=== PATIENT | female | born 1950 | race Caucasian/White ===

== ENCOUNTER → 2016-12-27 | Outpatient (CLI) | payer OTHER ==
[2014-06-15 11:05] VITALS: BP 124/66
[~2016-12-27] MED LIST: AZIT1PAC7 PO; CARV12.5 PO; DILT120C4 PO; GUAI-171 PO; LISI-338 PO; PARO20TA55 PO; SIMV80TA3 PO
[2016-12-27 12:21] LABS: CHOLESTEROL/HDL RATIO 2.3
[2016-12-27 12:22] LABS: FREE T4 1.11 ng/dL (0.76-1.46)
== END | disposition home or self-care (01) ==
LOC: LAB 11:38
PROVIDERS: ATTEND Nurse Practitioner
DX: E78.5 Hyperlipidemia, unspecified (principal)
CPT/HCPCS: 36415; 80061; 82306; 82550; 84439; 84443; 84460

== ENCOUNTER → 2017-01-03 | Outpatient (CLI) | payer BC, OTHER ==
[2014-06-15 11:05] VITALS: BP 124/66
--- NOTE | 2017-01-04 11:26 | CARD ---
APPROVED REPORT EXAM: Two-dimensional and M-mode echocardiogram with Doppler and color Doppler. Other Information Quality : Good Rhythm : NSR INDICATION hyperlipidemia RISK FACTORS Smoking CAD 2D DIMENSIONS Left Atrium(2D)4.0 (1.6-4.0cm)IVSd1.3 (0.7-1.1cm) Aortic Root(2D)3.0 (2.0-3.7cm)LVDd4.3 (3.9-5.9cm) LVOT Diameter2.0 (1.8-2.4cm)PWd1.3 (0.7-1.1cm) LVDs3.0 (2.5-4.0cm)FS (%) 30.3 % SV48.9 mlLVEF(%)57.9 (>50%) Aortic Valve AoV Peak Martínez.126.9cm/sAoV VTI27.2cm AO Peak GR.6.4mmHgLVOT Peak Martínez.102.3cm/s LVOT VTI 22.83cmAO Mean GR.4mmHg REINA (VMAX)2.74el7TCC (VTI)2.64cm2 Mitral Valve MV E Uxccxkpi68.1cm/sMV DECEL MGUN189ep MV A Mzpopark43.2cm/sMV DYM74tz E/A Ratio0.8MVA (PHT)3.09cm2 TDI E/Lateral E'15.5E/Medial E'15.8 Pulmonary Valve PV Peak Pwchdsur124.3cm/sPV Peak Grad.6mmHg Tricuspid Valve TR P. Htpupryg879vr/sRAP EFGEWZHR7hcWl TR Peak Gr.24mmHg Pulmonary Vein S1 Hmhrgqnn83.9cm/sD2 Sokxwjpq79.5cm/s LEFT VENTRICLE The left ventricle is normal size. There is mild to moderate concentric left ventricular hypertrophy. Left ventricle systolic function is normal. The Ejection Fraction is 55-60%. There is normal LV segm ental wall motion. Transmitral Doppler flow pattern is Grade I-abnormal relaxation pattern. RIGHT VENTRICLE The right ventricle is normal size. There is normal right ventricular wall thickness. The right ventr icular systolic function is normal. ATRIA The left atrium size is normal. The right atrium size is normal. The interatrial septum is intact wit h no evidence for an atrial septal defect or patent foramen ovale as noted on 2-D or Doppler imaging. AORTIC VALVE The aortic valve is normal in structure and function. Doppler and Color Flow revealed no significant aortic regurgitation. There is no significant aortic valvular stenosis. MITRAL VALVE The mitral valve is normal in structure and function. There is no mitral valve stenosis. Doppler and Color-flow revealed trace mitral regurgitation. TRICUSPID VALVE The tricuspid valve is normal in structure and function. Doppler and Color Flow revealed trace tricus pid regurgitation. The PA pressure was estimated at 27 mmHg. There is no tricuspid valve stenosis. PULMONIC VALVE The pulmonary valve is normal in structure and function. Doppler and Color Flow revealed trace pulmon ic valvular regurgitation. There is no pulmonic valvular stenosis. GREAT VESSELS The aortic root is normal in size. Normal pulmonary venous flow (Doppler). The IVC is normal in size and collapses >50% with inspiration. PERICARDIAL EFFUSION There is no evidence of significant pericardial effusion. Critical Notification Critical Value: No <Conclusion> Left ventricle systolic function is normal. The Ejection Fraction is 55-60%. There is normal LV segmental wall motion. Transmitral Doppler flow pattern is Grade I-abnormal relaxation pattern. Trace mitral regurgitation. Trace tricuspid regurgitation. The PA pressure was estimated at 27 mmHg. There is no evidence of significant pericardial effusion.
== END | disposition home or self-care (01) ==
LOC: ECHO 14:32
PROVIDERS: ATTEND Internal Medicine Cardiovascular Disease
DX: I08.1 Rheumatic disorders of both mitral and tricuspid valves (principal)
CPT/HCPCS: 93306

== ENCOUNTER 2017-01-09 11:53 | Emergency (ER) | payer BC ==
[~2017-01-09] VITALS: Ht 165.1 cm; Wt 66.2 kg
[~2017-01-09 11:53] MED LIST changes: -AZIT1PAC7 PO; +AZIT1PAC9 PO; -PARO20TA55 PO; +PARO20TA99 PO
[2017-01-09] MEDS ORDERED: ACETAMINOPHEN 500 MG TABLET PO ONE (13:00)
--- NOTE | 2017-01-09 13:06 | PHYS DOC ---
Past Medical History Past Medical History: Anxiety, Depression, Heart Disease, Hypertension Past Medical History Congenital one kidney Past Surgical History: Angioplasty, Appendectomy, Other Additional Past Surgical Histo: 2 Cardiac stents. Smoking: Cigarettes Additional Information: Smokes 3-4 cigs/day. Alcohol Use: Occasionally Drug Use: None Adult General Chief Complaint Chief Complaint: FLANK PAIN HPI HPI Patient is a 66 year old [female sex] who presents with three-day history of left lower lumbar pain after a fall on Sunday. Patient reports slipping on carpeted floor while wearing socks. Denies hitting head or neck denies any pain to the arms or legs. Pain is dull and worse with movement rated as mild to moderate. No pain radiating down the leg. Patient able to walk without difficulty. Patient's able to go the bathroom without difficulty. Does report a 1 kidney since . Denies back surgery. Denies saddle paresthesia or difficulty urinating over the bathroom. Denies prior back injury or back surgery. Denies blood thinners. Review of Systems Review of Systems Constitutional: Denies fever or chills [] Eyes: Denies change in visual acuity, redness, or eye pain [] HENT: Denies nasal congestion or sore throat [] Respiratory: Denies cough or shortness of breath [] Cardiovascular: No additional information not addressed in HPI [] GI: Denies abdominal pain, nausea, vomiting, bloody stools or diarrhea [] : Denies dysuria or hematuria [] Musculoskeletal: Denies back pain or joint pain [] Integument: Denies rash or skin lesions [] Neurologic: Denies headache, focal weakness or sensory changes [] Endocrine: Denies polyuria or polydipsia [] Current Medications Current Medications Current Medications Medications (Trade) Dose Ordered Sig/[facility] Start Time Stop Time Status Last Admin Dose Admin Acetaminophen (Tylenol) 1,000 mg 1X ONCE 01/09/17 13:00 01/09/17 13:02 DC 01/09/17 13:48 1,000 MG Allergies Allergies Allergies Coded Allergies Type Severity Reaction Last Updated Verified No Known Drug Allergies 06/14/14 No Physical Exam Physical Exam Constitutional: Well developed, well nourished, no acute distress, non-toxic appearance. [] HENT: Normocephalic, atraumatic, bilateral external ears normal, oropharynx moist, no oral exudates, nose normal. [] Eyes: PERRLA, EOMI, conjunctiva normal, no discharge. [] Neck: Normal range of motion, no tenderness, supple, no stridor. [] Cardiovascular:Heart rate regular rhythm, no murmur [] Lungs & Thorax: Bilateral breath sounds clear to auscultation [] Abdomen: Bowel sounds normal, soft, no tenderness, no masses, no pulsatile masses. [] Skin: Warm, dry, no erythema, no rash. [] Back: Mild tenderness in left paraspinous lumbar area and no bruising no CVA tenderness no midline tenderness of the cervical thoracic or lumbar spine., no CVA tenderness. [] Extremities: No tenderness, no cyanosis, no clubbing, ROM intact, no edema. [] Neurologic: Alert and oriented X 3, normal motor function, normal sensory function, no focal deficits noted. [2+ patellar reflexes in the lower extremities 5 out of 5 motor strength equal and symmetric normal dorsiflexion of great toe.] Psychologic: Affect normal, judgement normal, mood normal. [] Current Patient Data Vital Signs Vital Signs Date Time Temp Pulse Resp B/P (MAP) Pulse Ox O2 Delivery O2 Flow Rate FiO2 01/09/17 16:00 71 20 125/67 (86) 96 Room Air 01/09/17 12:20 98.2 98.2 Lab Values Laboratory Tests Test 01/09/17 14:55 Urine Collection Type Unknown Urine Color Yellow Urine Clarity Clear Urine pH 7.0 Urine Specific [place] <=1.005 Urine Protein Negative mg/dL (NEG-TRACE) Urine Glucose (UA) Negative mg/dL (NEG) Urine Ketones (Stick) Negative mg/dL (NEG) Urine Blood Negative (NEG) Urine Nitrite Negative (NEG) Urine Bilirubin Negative (NEG) Urine Urobilinogen Dipstick 0.2 mg/dL (0.2 mg/dL) Urine Leukocyte Esterase Large (NEG) Urine RBC Occ /HPF (0-2) Urine WBC 20-40 /HPF (0-4) Urine Squamous Epithelial Cells Mod /LPF Urine Bacteria Mod /HPF (0-FEW) EKG EKG [] Radiology/Procedures Radiology/Procedures Lumbar spine x-rays show cortical irregularity at L3 but no obvious compression fracture I review independent review of the imaging and I have reviewed the radiology report [] Course & Med Decision Making Course & Med Decision Making Pertinent Labs and Imaging studies reviewed. (See chart for details) Lumbar spine film was unremarkable there is some questionable L3 cortical abnormality that does not correlate clinically to her symptoms. Her urine was positive for UTI which we will treat. [] Examination the patient resting comfortably. Dragon Disclaimer Dragon Disclaimer This electronic medical record was generated, in whole or in part, using a voice recognition dictation system. Departure Departure Impression: Primary Impression: Lumbar contusion Additional Impression: UTI (urinary tract infection) Disposition: HOME, SELF-CARE Condition: IMPROVED Referrals: RICHARD NINA (PCP) Scripts Nitrofurantoin Monohyd/M-Cryst (MACROBID 100 MG CAPSULE) 100 Mg Capsule 1 CAP PO BID, #[id number] CAP Prov: DARIO ALDANA MD 01/09/17 Problem Qualifiers DARIO ALDANA MD January 09, 2017 13:06
--- NOTE | 2017-01-09 13:31 | RAD ---
Indication fall, pain. AP and lateral views of the lumbar spine were obtained as well as a coned view targeted to the lumbosacral junction. Clips are noted in the gallbladder fossa. 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 This was demonstrated on a previous CT examination 8 years ago and appears similar. There are some degenerative changes predominantly centered at L5-S1. There is very slight irregularity involving the anterior cortex of the L3 vertebral body. A subtle fracture accounting for the appearance is not excluded. There is slight wedging of lower thoracic vertebral body segments, likely chronic. IMPRESSION: Possible minimal cortical fracture associated with L3. The finding is not certain.
[2017-01-09 15:18] LABS: BILIRUBIN,URINE NEGATIVE (NEG); GLUCOSE,URINE NEGATIVE (NEG); NITRITE,URINE NEGATIVE (NEG); PROTEIN,URINE NEGATIVE (NEG-TRACE); UROBILINOGEN,URINE 0.2 mg/dL (0.2 mg/dL)
[2017-01-09 15:31] LABS: BACTERIA,URINE MOD /HPF (0-FEW); RBC,URINE OCC /HPF (0-2); SQUAMOUS EPITHELIAL CELL,UR MOD /LPF; WBC,URINE 20-40 /HPF (0-4)
[2017-01-09] MEDS ORDERED: NITR100C62 PO (15:51)
[2017-01-09 16:00] VITALS: BP 125/67
== END 2017-01-09 16:55 | disposition home or self-care (01) ==
LOC: ER 11:53
DX: S30.0XXA Contusion of lower back and pelvis, initial encounter (principal); N39.0 Urinary tract infection, site not specified; I11.9 Hypertensive heart disease without heart failure; F41.9 Anxiety disorder, unspecified; Z95.5 Presence of coronary angioplasty implant and graft; Z90.49 Acquired absence of other specified parts of digestive tract; F17.210 Nicotine dependence, cigarettes, uncomplicated; F32.9 Major depressive disorder, single episode, unspecified; W01.0XXA Fall on same level from slipping, tripping and stumbling without subsequent striking against object, initial encounter; Y93.89 Activity, other specified; Y99.8 Other external cause status; Y92.89 Other specified places as the place of occurrence of the external cause
CPT/HCPCS: 72100; 81001; 99285-25

== ENCOUNTER 2017-01-10 22:56 | Observation (INO) | payer BC ==
[~2017-01-10] VITALS: Ht 167.6 cm; Wt 70.8 kg
[~2017-01-10 22:56] MED LIST changes: +AZIT1PAC7 PO; -AZIT1PAC9 PO; +NITR100C62 PO; +PARO20TA55 PO; -PARO20TA99 PO
--- NOTE | 2017-01-10 23:06 | PHYS DOC ---
Past Medical History Past Medical History: Anxiety, CAD, Depression, Heart Disease, Hypertension Past Surgical History: Angioplasty, Appendectomy, Other Additional Past Surgical Histo: 2 Cardiac stents. Alcohol Use: Occasionally Drug Use: None Adult General Chief Complaint Chief Complaint: DIZZY/LIGHT HEADED HPI HPI Patient is a 66 year old female who presents with feeling dizzy and indigestion. She states that today at 8 AM she developed lightheadedness and dizziness. Head dull headache. She has chronic hypertension. She started checking and realized that it was quite elevated. Was not coming down. She's had indigestion this been severe at times for which she took a nitroglycerin at home. She states she just feels weak "all over". She did not feel well today at all. She was seen here on Sunday night when she fell and had x-rays performed that showed an L3 fracture. She denies any saddle anesthesia, any numbness or weakness of her lower extremities, any bowel or bladder changes, incontinence, retention. Review of Systems Review of Systems Constitutional: Denies fever or chills Eyes: Denies change in visual acuity, redness, or eye pain HENT: Denies nasal congestion or sore throat Respiratory: Denies cough or shortness of breath Cardiovascular: See history of present illness GI: Denies abdominal pain, nausea, vomiting, bloody stools or diarrhea : Denies dysuria or hematuria Musculoskeletal: back pain is controlled. No joint pain or swelling. No leg pain or swelling. Integument: Denies rash or skin lesions Neurologic: No headache, lightheadedness, dizziness. No sensory loss. No motor weakness. No visual change. No double vision. Current Medications Current Medications Current Medications Medications (Trade) Dose Ordered Sig/[facility] Start Time Stop Time Status Last Admin Dose Admin Labetalol HCl (Normodyne) 20 mg 1X ONCE 01/10/17 23:30 01/10/17 23:31 DC 01/10/17 23:26 20 MG Allergies Allergies Allergies Coded Allergies Type Severity Reaction Last Updated Verified No Known Drug Allergies 06/14/14 No Physical Exam Physical Exam Constitutional: Well developed, well nourished, no acute distress, non-toxic appearance. HENT: Normocephalic, atraumatic, bilateral external ears normal, oropharynx moist, no oral exudates, nose normal. Eyes: PERRLA, EOMI, conjunctiva normal, no discharge. Neck: Normal range of motion, no tenderness, supple, no stridor. Cardiovascular:Heart rate regular rhythm, no murmur Lungs & Thorax: Bilateral breath sounds clear to auscultation Abdomen: Bowel sounds normal, soft, no tenderness, no masses, no pulsatile masses. Skin: Warm, dry, no erythema, no rash. Back: No tenderness, no CVA tenderness. Extremities: No tenderness, no cyanosis, no clubbing, ROM intact, no edema. Neurologic: Alert and oriented X 3, normal motor function, normal sensory function, no focal deficits noted. Psychologic: Affect normal, judgement normal, mood normal. Current Patient Data Vital Signs Vital Signs Date Time Temp Pulse Resp B/P (MAP) Pulse Ox O2 Delivery O2 Flow Rate FiO2 01/11/17 01:00 62 19 182/98 (126) 94 Room Air 01/10/17 23:02 98.3 98.3 Lab Values Laboratory Tests Test 01/10/17 23:30 White Blood Count 6.9 x10^3/uL (4.0-11.0) Red Blood Count 4.82 x10^6/uL (3.50-5.40) Hemoglobin 15.8 g/dL (12.0-15.5) H Hematocrit 46.4 % (36.0-47.0) Mean Corpuscular Volume 96 fL (79-100) Mean Corpuscular Hemoglobin 33 pg (25-35) Mean Corpuscular Hemoglobin Concent 34 g/dL (31-37) Red Cell Distribution Width 14.0 % (11.5-14.5) Platelet Count 184 x10^3/uL (140-400) Neutrophils (%) (Auto) 61 % (31-73) Lymphocytes (%) (Auto) 30 % (24-48) Monocytes (%) (Auto) 8 % (0-9) Eosinophils (%) (Auto) 2 % (0-3) Basophils (%) (Auto) 1 % (0-3) Neutrophils # (Auto) 4.2 x10^3uL (1.8-7.7) Lymphocytes # (Auto) 2.0 x10^3/uL (1.0-4.8) Monocytes # (Auto) 0.5 x10^3/uL (0.0-1.1) Eosinophils # (Auto) 0.1 x10^3/uL (0.0-0.7) Basophils # (Auto) 0.0 x10^3/uL (0.0-0.2) Sodium Level 136 mmol/L (136-145) Potassium Level 3.9 mmol/L (3.5-5.1) Chloride Level 100 mmol/L (98-107) Carbon Dioxide Level 23 mmol/L (21-32) Anion Gap 13 (6-14) Blood Urea Nitrogen 11 mg/dL (7-20) Creatinine 0.7 mg/dL (0.6-1.0) Estimated GFR (Cockcroft-Gault) 83.5 Glucose Level 113 mg/dL (70-99) H Calcium Level 9.5 mg/dL (8.5-10.1) Creatine Kinase 58 U/L (26-192) Creatine Kinase MB (Mass) 1.3 ng/mL (0.0-3.6) Creatine Kinase MB Relative Index % (0-4) Troponin I Quantitative < 0.017 ng/mL (0.000-0.055) OY-Fry-Y-Type Natriuretic Peptide 525 pg/mL (0-124) H Laboratory Tests 01/10/17 23:30 Laboratory Tests 01/10/17 23:30 EKG EKG EKG interpreted by myself at 2345 PM; NSR rate 63, Non specific ST changes. No acute ST elev. Radiology/Procedures Radiology/Procedures [facility] [address] [place], [place] [id number] IMAGING REPORT Signed PATIENT: GARLAND RG ACCOUNT: [id number] : 1950 LOCATION: ER AGE: 66 SEX: F EXAM STATUS: PRE ER ORD. PHYSICIAN: RAPHAEL GRIER MD REASON: headache; dizzy PROCEDURE: CT HEAD WO CONTRAST CT head without contrast TECHNIQUE: [address] imaging skull base to vertex HISTORY: Dizziness, lightheaded, hypertension. FINDINGS: There is mild ventriculomegaly present without evidence of obstructive hydrocephalus. This may be due to generalized brain atrophy with ex vacuo dilation of the ventricles versus normal pressure hydrocephalus. There is extensive cerebral white matter heterogeneous hypoattenuation present, in a patient of this age statistically most likely represents chronic microvascular ischemic injury. No intracranial hemorrhage, mass or infarction. No acute ischemic changes are evident. Orbits, mastoids, paranasal sinuses and bones are unremarkable. IMPRESSION: 1. No acute intracranial CT abnormality. 2. Mild ventriculomegaly likely related either to mild generalized brain atrophy or normal pressure hydrocephalus. 3. Cerebral white matter hypoattenuation likely represents advanced chronic microvascular ischemic injury. Exposure: One or more of the following individualized dose reduction techniques were utilized for this examination: 1. Automated exposure control 2. Adjustment of the mA and/or kV according to patient size 3. Use of iterative reconstruction technique Electronically signed by: Liu Denis MD (01/10/2017 11:35 PM) DICTATED and SIGNED BY: LIU DENIS MD DATE: 01/10/172329 CC: RAPHAEL GRIER MD; RICHARD NINA ~ Impressions: Chest x-ray interpreted by myself. Slightly enlarged cardiac silhouette. No infiltrates. Normal mediastinum. Course & Med Decision Making Course & Med Decision Making Pertinent Labs and Imaging studies reviewed. (See chart for details) evaluated patient; reviewed recent visit. no acute neurologic compromise at this time; no evidence of cauda equina syndrome. Labetalol dosed for elevated BP here 20 mg IV 2350 PM ;BP responded nicely P 65, sat 97%; CT head negative. Awaiting lab. 0040 a.m. Blood pressure elevated again to 201/100, P 69. Still having indigestion. Nitro paste placed to chest wall, morphine IM. Concern that this could be anginal in origin. To had a discussion with the patient and her spouse. Will admit with further cardiac evaluation. Spoke with DR Vu for admission Dragon Disclaimer Dragon Disclaimer This electronic medical record was generated, in whole or in part, using a voice recognition dictation system. Departure Departure Impression: Primary Impression: Chest pain Additional Impressions: Malignant hypertension Coronary artery disease Disposition: ADMITTED INPATIENT Admitting Physician: Siddhartha Vu Condition: STABLE Referrals: RICHARD NINA (PCP) Critical Care Note Total Time (mins): 30 Comments Critical care was performed on this patient. Patient presented with malignant hypertension and has a high probability of eminent or life-threatening deterioration. There will care time that was done includes documentation, temperature petition of radiology, laboratory, EKG data. Discussion with family members. Consultation with other physicians. Problems: Critical Care Time Critical care time was [] minutes exclusive of procedures. Problem Qualifiers RAPHAEL GRIER MD January 10, 2017 23:05
[2017-01-10] MEDS ORDERED: LABETALOL 20 MG/4 ML DISP.SYRIN. IVP ONE (23:30)
--- NOTE | 2017-01-10 23:39 | RAD ---
CT head without contrast TECHNIQUE: [address] imaging skull base to vertex HISTORY: Dizziness, lightheaded, hypertension. FINDINGS: There is mild ventriculomegaly present without evidence of obstructive hydrocephalus. This may be due to generalized brain atrophy with ex vacuo dilation of the ventricles versus normal pressure hydrocephalus. There is extensive cerebral white matter heterogeneous hypoattenuation present, in a patient of this age statistically most likely represents chronic microvascular ischemic injury. No intracranial hemorrhage, mass or infarction. No acute ischemic changes are evident. Orbits, mastoids, paranasal sinuses and bones are unremarkable. IMPRESSION: 1. No acute intracranial CT abnormality. 2. Mild ventriculomegaly likely related either to mild generalized brain atrophy or normal pressure hydrocephalus. 3. Cerebral white matter hypoattenuation likely represents advanced chronic microvascular ischemic injury. Exposure: One or more of the following individualized dose reduction techniques were utilized for this examination: 1. Automated exposure control 2. Adjustment of the mA and/or kV according to patient size 3. Use of iterative reconstruction technique Electronically signed by: Ranjit Denis MD (01/10/2017 11:35 PM)
[2017-01-10 23:45] LABS: BASO % 1 % (0-3); EOS % 2 % (0-3); HEMATOCRIT 46.4 % (36.0-47.0); HEMOGLOBIN 15.8 g/dL (12.0-15.5); LYMPH % 30 % (24-48); MEAN CORPUSCULAR HEMOGLOBIN 33 pg (25-35); MEAN CORPUSCULAR HGB CONC 34 g/dL (31-37); MEAN CORPUSCULAR VOLUME 96 fL (79-100); MONO % 8 % (0-9); NEUT % 61 % (31-73); PLATELET COUNT 184 x10^3/uL (140-400); RED BLOOD COUNT 4.82 x10^6/uL (3.50-5.40); WHITE BLOOD COUNT 6.9 x10^3/uL (4.0-11.0)
[2017-01-10 23:54] LABS: CALCIUM 9.5 mg/dL (8.5-10.1); CREATININE 0.7 mg/dL (0.6-1.0); GFR 83.5; POTASSIUM 3.9 mmol/L (3.5-5.1)
[2017-01-11] VITALS (7 sets, daily range): BP systolic 131–208; BP diastolic 66–90
[2017-01-11 00:11] LABS: CKMB MASS 1.3 ng/mL (0.0-3.6); CREATINE KINASE 58 U/L (26-192)
[2017-01-11] MEDS ORDERED: MORPHINE SULFATE 2 MG/ML DISP.SYRIN. ONE (01:02)
[2017-01-11] MEDS ORDERED: NITROGLYCERIN OINT 1 GM PACKET. ONE (01:02)
[2017-01-11] MEDS ORDERED: NITROGLYCERIN OINT 1 GM PACKET. TP ONE (01:30)
[2017-01-11] MEDS ORDERED: MORPHINE SULFATE 2 MG/ML DISP.SYRIN. IV ONE (01:30)
[2017-01-11] MEDS ORDERED: MORPHINE SULFATE 2 MG/ML DISP.SYRIN. IV PRN (02:15)
[2017-01-11] MEDS ORDERED: NITROGLYCERIN SUBLINGUAL 0.4 MG BOTTLE OF 25. SL PRN (02:15)
[2017-01-11] MEDS ORDERED: ONDANSETRON PF 4 MG/2 ML VIAL. IV PRN (02:15)
--- NOTE | 2017-01-11 04:56 | ACF ---
Admission Forms Criteria HYPERTENSION Clinical Indications for Admission to Inpatient Care ( Place "X" for any and all applicable criteria): Admission is indicated for ANY ONE of the following(1)(2)(3)(4): [ ]I. Hypertensive emergency, with evidence of acute and progressing target organ disease as indicated by ANY ONE of the following: [ ]a) Hypertensive encephalopathy (eg, confusion, altered mental status) [ ]b) Cerebral infarction [ ]c) Intracranial hemorrhage [ ]d) Myocardial ischemia or infarction [ ]e) Pulmonary edema [ ]f) Aortic dissection [ ]g) Seizure [ ]h) Acute renal insufficiency [ ]i) Papilledema [ ]j) Microangiopathic hemolytic anemia [ ]II. Adrenergic crisis (eg, severe hypertension due to pheochromocytoma crisis, cocaine or amphetamine intoxication, or clonidine withdrawal) [ ]III. Severe hypertension (SBP greater than 180 mmHg or DBP greater than 110 mmHg or greater than the 95th percentile for age, gender, and height in pediatric patients) that cannot be controlled (eg, to SBP less than 160 mmHg and DBP less than 100 mmHg in adults) by treatment with oral medication in emergency department or observation care Extended stay beyond goal length of stay may be needed for(11)(12)(13): [ ]a) Persistent hypertensive encephalopathy [ ]b) Continuation of pulmonary edema [ ]c) Recurring or persistent severe hypertension [ ]d) Target organ damage (eg, angina, stroke, aortic dissection) [ ]e) Associated renal insufficiency The original [employer] content created by [employer] has been revised. The portions of the content which have been revised are identified through the use of italic text or in bold, and [facility] has neither reviewed nor approved the modified material. All other unmodified content is copyright [employer]. Please see references footnoted in the original [employer] edition 2016 EDUARDO LUCIA January 11, 2017 04:56
[2017-01-11] MEDS: NITROGLYCERIN OINT 1 GM PACKET. TP SCH ×3 (05:32→17:42)
--- NOTE | 2017-01-11 06:16 | ACF ---
Admission Forms Criteria CHEST PAIN Clinical Indications for Admission to Inpatient Care (Place 'X' for any and all applicable criteria): Admission is indicated for chest pain and ANY ONE of the following(1)(2)(3)(4)(5 ): [ ]I. Angina with acute coronary syndrome (Also use Myocardial Infarction or Angina guideline) [ ]II. Hemodynamic instability [ ]III. Angina needing acute intervention as indicated by ALL of the following( 11)(12): [ ]a) Unstable angina is present as indicated by angina that is ANY ONE of the following: [ ]i) New onset [ ]ii) Nocturnal [ ]iii) Prolonged at rest [ ]iv) Progressive [ ]b) Angina warrants acute intervention as indicated by ANY ONE of the following: [ ]i) Recurrent angina (e.g, not responding as previously to treatment) [ ]ii) Angina at rest or with low-level activities despite initial medical therapy [ ]iii) New or presumably new ST-segment depression on ECG [ ]iv) Signs or symptoms of heart failure (eg, dyspnea, pulmonary edema) [ ]v) New or worsening mitral regurgitation [ ]vi) Hemodynamic instability [ ]vii) Dangerous arrhythmia (eg, sustained ventricular tachycardia) [ ]viii) History of percutaneous coronary intervention within 6 months [ ]ix) History of coronary artery bypass graft surgery [ ]x) SHEA risk score of 2 or greater[A] [ ]xi) History of Diabetes(14) [ ]xii) High-risk cardiac ischemia findings on noninvasive testing (e.g, echocardiogram, treadmill testing, nuclear scan) [ ]xiii) Chronic renal insufficiency (ie, estimated GFR less than 60 mL/min/1.732m) [ ]xiv) Left ventricular ejection fraction less than 40% [ ]IV. Evidence of OH (eg, cardiac biomarkers positive, ST-segment elevation on ECG) also use Myocardial Infarction Criteria Form. [ ]V. Pulmonary edema [ ]. Respiratory distress [ ]VII. Chest pain indicative of serious diagnosis other than coronary artery disease (eg, aortic dissection) [ ]VIII. Contraindications and/or Inappropriate clinical situations for Observational Care in patients with Chest Pain, when ANY ONE of the following is required: [ ]a) Patient with risk factor for pulmonary embolism, acute coronary syndrome and myocardial infarction (18) [ ]b) Patient with Pulmonary embolism require an average LOS of 4.3 days, therefore emergency department observation management is inappropriate 18,23 [ ]c) Painful condition/s in the elderly, have the highest rate of recidivism after emergency department observation management (10.8%) 20,21,22 [ ]d) Elevated cardiac biomarker requires intensive and exhaustive care (19) [X]IX. General contraindications and/or Inappropriate clinical situations for Observational Care in patients with Chest Pain, when ANY ONE of the following is required: [ ]a) Prediction of prolongation of LOS based on ANY ONE of the following may be considered as a contraindication for observational care 2, 3, 4, 5, 6, 7, 8, 9, 10, 11 [ ]i) Age > 65 yrs. [ ]ii) Patient arriving by ambulance [ ]iii) Patient with high acuity [ ]iv) Patient requiring vital sign monitoring [ ]v) Patient on IV medication [X]b) Systolic blood pressures 180mmHg 3,12 [ ]c) Patient with altered mental status including delirium and other alteration of consciousness, (3) [ ]d) Patient whose discharge disposition will be to a residential home or rehabilitation home should not be managed in Emergency Department Observation Unit. CMS rule requires 3 days hospital stay before such placement. 3,13 [ ]e) Patient with failure to thrive due to broad array of etiologies 3,16,17 [ ]f) Inability to ambulate 3,14 Extended stay beyond goal length of stay may be needed for (1)(28): [ ]a) Specific condition diagnosed after evaluation (eg, pulmonary embolism, aortic dissection) [ ]b) Unstable angina [ ]c) Continued suspicion of acute coronary syndrome with inability to complete needed cardiac evaluation (eg, patient clinically unable to undergo stress testing) [ ]d) Myocardial infarction (Contents from ANGINA and CHEST PAIN clinical indications for admission to inpatient care have been integrated in this form) The original [employer] content created by [employer] has been revised. The portions of the content which have been revised are identified through the use of italic text or in bold, and [employer] has neither reviewed nor approved the modified material. All other unmodified content is copyright [employer]. Please see references footnoted in the original [employer] edition 2016 EDUARDO LUCIA January 11, 2017 06:16
--- NOTE | 2017-01-11 07:44 | EKG ---
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
[2017-01-11] MEDS: ACETAMINOPHEN 325 MG TABLET. PO PRN (08:41)
--- NOTE | 2017-01-11 09:02 | PDOC2 ---
CARDIAC CONSULT DATE OF CONSULT Date of Consult DATE: 01/11/17 TIME: 08:44 REASON FOR CONSULT Reason for Consult: Chest pain, malignant HTN, known CAD REFERRING PHYSICIAN Referring Physician: Isaac SOURCE Source: Chart review, Patient HISTORY OF PRESENT ILLNESS HISTORY OF PRESENT ILLNESS This is a pleasant 66 yo female admitted for complains of fatigue, JOHN, high BP , dizziness, and WAGNER. In the last 3-4 weeks she has been feeling more fatigue and has been feeling SOA just going up the stairs. Denies any CP or palpitations. She has been waking at night sometimes gasping for air but no orthopnea. She has been observed by her spouse to be snoring and having long gaps between respirations. She is not sure about MEET in the past but she used to wear O2 at night but no CPAP. She is significant for CAD with stents in the past and last LHC in 2012 without subsequent MPI following. Reports that in the last 2 days she has been having dizzy spells and yesterday feeling more fatigue and finally checked her BP which she usually don't and noted 220/102. She took her BP medications that morning but her BP remains uncontrolled. Also with throbbing frontal WAGNER but no facial droop, dysarthria, visual /auditory disturbances or unilateral weakness. She did have nausea at that time as well. Denies skipping her meds but she said likely her BP meds were decreased about 2 months ago but she was not sure. In addition she has not been watching her salt intake as well. PAST MEDICAL HISTORY Cardiovascular: CAD, HTN, Hyperlipidemia Pulmonary: COPD (?), Other (MEET?) CENTRAL NERVOUS SYSTEM: Other (No pertinent history) Psych: Depression Musculoskeletal: low back pain, Osteoarthritis Rheumatologic: No pertinent hx Infectious disease: No pertinent hx ENT: No pertinent hx Renal/: No pertinent hx Endocrine: No pertinent hx Dermatology: No pertinent hx PAST SURGICAL HISTORY Past Surgical History: Appendectomy, Other (PCI/stents in the past) FAMILY HISTORY Family History: Hypertension (mother and 2 sons) SOCIAL HISTORY Smoke: <1 pack per day (>20 yrs) ALCOHOL: none Drugs: None Lives: with Family CURRENT MEDICATIONS CURRENT MEDICATIONS Current Medications Medications (Trade) Dose Ordered Sig/Pipo Route PRN Reason Start Time Stop Time Status Last Admin Dose Admin Labetalol HCl (Normodyne) 20 mg 1X ONCE IVP 01/10/17 23:30 01/10/17 23:31 DC 01/10/17 23:26 Nitroglycerin (Nitro-Bid Oint) 1 inch 1X ONCE TP 01/11/17 01:30 01/11/17 01:31 DC 01/11/17 01:04 Morphine Sulfate 2 mg 1X ONCE IV 01/11/17 01:30 01/11/17 01:31 DC 01/11/17 01:05 Nitroglycerin (Nitro-Bid Oint) 1 inch Q6HRS TP 01/11/17 06:00 01/11/17 05:32 Acetaminophen (Tylenol) 650 mg PRN Q6HRS PRN PO PAIN 01/11/17 08:30 01/11/17 08:41 ALLERGIES ALLERGIES: Coded Allergies: No Known Drug Allergies (Unverified , 06/14/14) pt states allergy to "antibiotic" which gives her severe stomach cramps. Pt unable to identify this antibiotic, [facility] has NKDA listed for this patient. ROS Review of System 14 point ROS evaluated with pertinent positives noted per HPI PHYSICAL EXAM General: Alert, Oriented X3, Cooperative, No acute distress HEENT: Atraumatic, Mucous membr. moist/pink Lungs: Clear to auscultation, Normal air movement Heart: Regular rate (SR), Normal S1, Normal S2, Other (2/6 systolic murmur to LLS border) Abdomen: Soft, No tenderness Extremities: No cyanosis, No edema Skin: No breakdown, No significant lesion Neuro: Normal speech, Sensation intact Psych/Mental Status: Mental status NL, Mood NL MUSCULOSKELETAL: Osteoarthritic changes both hands VITALS VITALS Vital Signs Date Time Temp Pulse Resp B/P (MAP) Pulse Ox O2 Delivery O2 Flow Rate FiO2 01/11/17 08:19 Room Air 01/11/17 07:20 98.4 72 16 140/74 (96) 95 98.4 LABS Lab: Laboratory Tests Test 01/10/17 23:30 White Blood Count 6.9 x10^3/uL (4.0-11.0) Red Blood Count 4.82 x10^6/uL (3.50-5.40) Hemoglobin 15.8 g/dL (12.0-15.5) Hematocrit 46.4 % (36.0-47.0) Mean Corpuscular Volume 96 fL (79-100) Mean Corpuscular Hemoglobin 33 pg (25-35) Mean Corpuscular Hemoglobin Concent 34 g/dL (31-37) Red Cell Distribution Width 14.0 % (11.5-14.5) Platelet Count 184 x10^3/uL (140-400) Neutrophils (%) (Auto) 61 % (31-73) Lymphocytes (%) (Auto) 30 % (24-48) Monocytes (%) (Auto) 8 % (0-9) Eosinophils (%) (Auto) 2 % (0-3) Basophils (%) (Auto) 1 % (0-3) Neutrophils # (Auto) 4.2 x10^3uL (1.8-7.7) Lymphocytes # (Auto) 2.0 x10^3/uL (1.0-4.8) Monocytes # (Auto) 0.5 x10^3/uL (0.0-1.1) Eosinophils # (Auto) 0.1 x10^3/uL (0.0-0.7) Basophils # (Auto) 0.0 x10^3/uL (0.0-0.2) Sodium Level 136 mmol/L (136-145) Potassium Level 3.9 mmol/L (3.5-5.1) Chloride Level 100 mmol/L (98-107) Carbon Dioxide Level 23 mmol/L (21-32) Anion Gap 13 (6-14) Blood Urea Nitrogen 11 mg/dL (7-20) Creatinine 0.7 mg/dL (0.6-1.0) Estimated GFR (Cockcroft-Gault) 83.5 Glucose Level 113 mg/dL (70-99) Calcium Level 9.5 mg/dL (8.5-10.1) Creatine Kinase 58 U/L (26-192) Creatine Kinase MB (Mass) 1.3 ng/mL (0.0-3.6) Creatine Kinase MB Relative Index % (0-4) Troponin I Quantitative < 0.017 ng/mL (0.000-0.055) AJ-Nup-V-Type Natriuretic Peptide 525 pg/mL (0-124) ECHOCARDIOGRAM ECHOCARDIOGRAM <Conclusion> Left ventricle systolic function is normal. The Ejection Fraction is 55-60%. There is normal LV segmental wall motion. Transmitral Doppler flow pattern is Grade I-abnormal relaxation pattern. Trace mitral regurgitation. Trace tricuspid regurgitation. The PA pressure was estimated at 27 mmHg. There is no evidence of significant pericardial effusion. DATE: 01/04/17 1126 HEART CATH HEART CATH last [facility] was 05/2013 no intervention at that time with patency noted to prior stents and mid to distal diffuse narrowing at 30-35% and 35% to mid LCx outside the stent and 15% mid RCA outside the stent ASSESSMENT/PLAN ASSESSMENT/PLAN 1. Malignant HTN: received labetolol, NTG paste and morphine in ED. Improved. Likely from reduced BP med dosed, MEET, and noncompliance with Na restrictions 2. Presyncope: likely vagal induced by #1 3. CAD: PCI/stent to RCA/LCx. No CP. Notable atypical symptoms with fatigue and JOHN. 4. HLP 5. Likely COPD with continued tobaccoism 6. Mechanical fall with low back pain: slipped and fell on carpet few days ago. lumbar Xray with possible L3 fracture 7. Probable MEET Recommendations 1. TTE recent with normal EF and wall motion. MPI today and rule out any occult ischemia 2. CT head revealed cerebral atrophy no acute changes per head CT and with chronic microvascular ischemic injury. Will obtain carotid doppler 3. PFTs, CXR, TSH, lipids 4. Will review home meds and will modify accordingly 5. Will need outpt MEET workup 6. Will need lumbar MRI defer to PCP 7. smoking cessation Problems: DINA LONGORIA APRN January 11, 2017 09:01
[2017-01-11 09:27] LABS: ALBUMIN 3.4 g/dL (3.4-5.0); ALBUMIN/GLOBULIN RATIO 1.3 (1.0-1.7); CALCIUM 9.2 mg/dL (8.5-10.1); CHOLESTEROL/HDL RATIO 2.3; CREATININE 0.7 mg/dL (0.6-1.0); GFR 83.5; POTASSIUM 4.3 mmol/L (3.5-5.1); TOTAL BILIRUBIN 0.7 mg/dL (0.2-1.0); TOTAL PROTEIN 6.1 g/dL (6.4-8.2)
--- NOTE | 2017-01-11 09:39 | RAD ---
Indication hypertension. A single view of the chest was obtained and is compared to a study 06/14/2014. The heart and pulmonary vessels appear normal. The lungs are clear. There are occasional calcified right hilar lymph nodes. An acute finding or significant change compared to the previous exam is not seen. IMPRESSION: No acute or focal finding. No significant change
[2017-01-11] MEDS ORDERED: LABETALOL 20 MG/4 ML DISP.SYRIN. IVP PRN (11:00)
[2017-01-11] MEDS ORDERED: LABETALOL 20 MG/4 ML DISP.SYRIN. IVP ONE (11:00)
[2017-01-11] MEDS ORDERED: REGADENOSON 0.4 MG/5 ML DISP.SYRIN. IV ONE (11:30)
[2017-01-11] MEDS ORDERED: LISINOPRIL 5 MG TABLET. PO SCH (12:00)
[2017-01-11] MEDS: ASPIRIN ENTERIC COATED 81 MG TABLET.DR. PO SCH (12:18)
[2017-01-11] MEDS: LISINOPRIL 40 MG TABLET. PO SCH (12:18)
[2017-01-11] MEDS: CARVEDILOL 12.5 MG TABLET. PO SCH ×2 (12:19→17:34)
--- NOTE | 2017-01-11 13:29 | PDOC ---
PROGRESS NOTES Chief Complaint Chief Complaint Chest pain Malignant hypertension Coronary artery disease, s/p PCI/stent to RCA/LCx Dizziness/Lightheaded COPD MEET Anxiety Depression History of Present Illness History of Present Illness Patient was lying in bed in no acute distress this am when seen Says she is waiting on stress test results Vitals Vitals Vital Signs Date Time Temp Pulse Resp B/P (MAP) Pulse Ox O2 Delivery O2 Flow Rate FiO2 01/11/17 12:19 73 160/85 01/11/17 10:49 98.3 16 94 Room Air 98.3 Physical Exam General: Alert, Oriented X3, Cooperative, No acute distress Heart: Regular rate (SR), Normal S1, Normal S2, Other (2/6 systolic murmur to LLS border) Lungs: Clear, Other (no wheezing) Abdomen: Soft, No tenderness Extremities: No cyanosis, No edema Skin: No breakdown, No significant lesion Labs LABS Laboratory Tests Test 01/10/17 23:30 01/11/17 08:15 White Blood Count 6.9 x10^3/uL (4.0-11.0) Red Blood Count 4.82 x10^6/uL (3.50-5.40) Hemoglobin 15.8 g/dL (12.0-15.5) Hematocrit 46.4 % (36.0-47.0) Mean Corpuscular Volume 96 fL (79-100) Mean Corpuscular Hemoglobin 33 pg (25-35) Mean Corpuscular Hemoglobin Concent 34 g/dL (31-37) Red Cell Distribution Width 14.0 % (11.5-14.5) Platelet Count 184 x10^3/uL (140-400) Neutrophils (%) (Auto) 61 % (31-73) Lymphocytes (%) (Auto) 30 % (24-48) Monocytes (%) (Auto) 8 % (0-9) Eosinophils (%) (Auto) 2 % (0-3) Basophils (%) (Auto) 1 % (0-3) Neutrophils # (Auto) 4.2 x10^3uL (1.8-7.7) Lymphocytes # (Auto) 2.0 x10^3/uL (1.0-4.8) Monocytes # (Auto) 0.5 x10^3/uL (0.0-1.1) Eosinophils # (Auto) 0.1 x10^3/uL (0.0-0.7) Basophils # (Auto) 0.0 x10^3/uL (0.0-0.2) Sodium Level 136 mmol/L (136-145) 137 mmol/L (136-145) Potassium Level 3.9 mmol/L (3.5-5.1) 4.3 mmol/L (3.5-5.1) Chloride Level 100 mmol/L (98-107) 101 mmol/L (98-107) Carbon Dioxide Level 23 mmol/L (21-32) 26 mmol/L (21-32) Anion Gap 13 (6-14) 10 (6-14) Blood Urea Nitrogen 11 mg/dL (7-20) 11 mg/dL (7-20) Creatinine 0.7 mg/dL (0.6-1.0) 0.7 mg/dL (0.6-1.0) Estimated GFR (Cockcroft-Gault) 83.5 83.5 Glucose Level 113 mg/dL (70-99) 119 mg/dL (70-99) Calcium Level 9.5 mg/dL (8.5-10.1) 9.2 mg/dL (8.5-10.1) Creatine Kinase 58 U/L (26-192) Creatine Kinase MB (Mass) 1.3 ng/mL (0.0-3.6) Creatine Kinase MB Relative Index % (0-4) Troponin I Quantitative < 0.017 ng/mL (0.000-0.055) < 0.017 ng/mL (0.000-0.055) NW-Dxa-R-Type Natriuretic Peptide 525 pg/mL (0-124) BUN/Creatinine Ratio 16 (6-20) Total Bilirubin 0.7 mg/dL (0.2-1.0) Aspartate Amino Transf (AST/SGOT) 23 U/L (15-37) Alanine Aminotransferase (ALT/SGPT) 31 U/L (14-59) Alkaline Phosphatase 128 U/L (46-116) Total Protein 6.1 g/dL (6.4-8.2) Albumin 3.4 g/dL (3.4-5.0) Albumin/Globulin Ratio 1.3 (1.0-1.7) Triglycerides Level 124 mg/dL (0-150) Cholesterol Level 129 mg/dL (0-200) LDL Cholesterol, Calculated 48 mg/dL (0-100) VLDL Cholesterol, Calculated 25 mg/dL (0-40) Non-HDL Cholesterol Calculated 73 mg/dL (0-129) HDL Cholesterol 56 mg/dL (40-60) Cholesterol/HDL Ratio 2.3 Thyroid Stimulating Hormone (TSH) 2.639 uIU/mL (0.358-3.74) Review of Systems Review of Systems General: denies weakness GI: denies N/V/D/C Assessment and Plan Assessmemt and Plan Problems Medical Problems: (1) Chest pain Status: Acute (2) Coronary artery disease Status: Acute (3) Malignant hypertension Status: Acute Chest pain Malignant hypertension Coronary artery disease, s/p PCI/stent to RCA/LCx Dizziness/Lightheaded COPD MEET Anxiety Depression Plan: -Cardio consulted- will obtain carotid doppler and MPI -MPI results pending -Neuro consulted for dizziness and mild ventriculomegaly on CT -Pulmonary function tests pending -TSH and Lipids ordered -Per cardio- outpt MEET workup -Recheck am labs -Monitor blood pressure -PT/OT as appropriate -Subspecialty input appreciated -Discharge disposition pending Problems: Comment Review of Relevant I have reviewed the following items anders (where applicable) has been applied. Labs Laboratory Tests Test 01/10/17 23:30 01/11/17 08:15 White Blood Count 6.9 x10^3/uL (4.0-11.0) Red Blood Count 4.82 x10^6/uL (3.50-5.40) Hemoglobin 15.8 g/dL (12.0-15.5) Hematocrit 46.4 % (36.0-47.0) Mean Corpuscular Volume 96 fL (79-100) Mean Corpuscular Hemoglobin 33 pg (25-35) Mean Corpuscular Hemoglobin Concent 34 g/dL (31-37) Red Cell Distribution Width 14.0 % (11.5-14.5) Platelet Count 184 x10^3/uL (140-400) Neutrophils (%) (Auto) 61 % (31-73) Lymphocytes (%) (Auto) 30 % (24-48) Monocytes (%) (Auto) 8 % (0-9) Eosinophils (%) (Auto) 2 % (0-3) Basophils (%) (Auto) 1 % (0-3) Neutrophils # (Auto) 4.2 x10^3uL (1.8-7.7) Lymphocytes # (Auto) 2.0 x10^3/uL (1.0-4.8) Monocytes # (Auto) 0.5 x10^3/uL (0.0-1.1) Eosinophils # (Auto) 0.1 x10^3/uL (0.0-0.7) Basophils # (Auto) 0.0 x10^3/uL (0.0-0.2) Sodium Level 136 mmol/L (136-145) 137 mmol/L (136-145) Potassium Level 3.9 mmol/L (3.5-5.1) 4.3 mmol/L (3.5-5.1) Chloride Level 100 mmol/L (98-107) 101 mmol/L (98-107) Carbon Dioxide Level 23 mmol/L (21-32) 26 mmol/L (21-32) Anion Gap 13 (6-14) 10 (6-14) Blood Urea Nitrogen 11 mg/dL (7-20) 11 mg/dL (7-20) Creatinine 0.7 mg/dL (0.6-1.0) 0.7 mg/dL (0.6-1.0) Estimated GFR (Cockcroft-Gault) 83.5 83.5 Glucose Level 113 mg/dL (70-99) 119 mg/dL (70-99) Calcium Level 9.5 mg/dL (8.5-10.1) 9.2 mg/dL (8.5-10.1) Creatine Kinase 58 U/L (26-192) Creatine Kinase MB (Mass) 1.3 ng/mL (0.0-3.6) Creatine Kinase MB Relative Index % (0-4) Troponin I Quantitative < 0.017 ng/mL (0.000-0.055) < 0.017 ng/mL (0.000-0.055) YI-Eia-G-Type Natriuretic Peptide 525 pg/mL (0-124) BUN/Creatinine Ratio 16 (6-20) Total Bilirubin 0.7 mg/dL (0.2-1.0) Aspartate Amino Transf (AST/SGOT) 23 U/L (15-37) Alanine Aminotransferase (ALT/SGPT) 31 U/L (14-59) Alkaline Phosphatase 128 U/L (46-116) Total Protein 6.1 g/dL (6.4-8.2) Albumin 3.4 g/dL (3.4-5.0) Albumin/Globulin Ratio 1.3 (1.0-1.7) Triglycerides Level 124 mg/dL (0-150) Cholesterol Level 129 mg/dL (0-200) LDL Cholesterol, Calculated 48 mg/dL (0-100) VLDL Cholesterol, Calculated 25 mg/dL (0-40) Non-HDL Cholesterol Calculated 73 mg/dL (0-129) HDL Cholesterol 56 mg/dL (40-60) Cholesterol/HDL Ratio 2.3 Thyroid Stimulating Hormone (TSH) 2.639 uIU/mL (0.358-3.74) Laboratory Tests Test 01/10/17 23:30 01/11/17 08:15 White Blood Count 6.9 x10^3/uL (4.0-11.0) Red Blood Count 4.82 x10^6/uL (3.50-5.40) Hemoglobin 15.8 g/dL (12.0-15.5) Hematocrit 46.4 % (36.0-47.0) Mean Corpuscular Volume 96 fL (79-100) Mean Corpuscular Hemoglobin 33 pg (25-35) Mean Corpuscular Hemoglobin Concent 34 g/dL (31-37) Red Cell Distribution Width 14.0 % (11.5-14.5) Platelet Count 184 x10^3/uL (140-400) Neutrophils (%) (Auto) 61 % (31-73) Lymphocytes (%) (Auto) 30 % (24-48) Monocytes (%) (Auto) 8 % (0-9) Eosinophils (%) (Auto) 2 % (0-3) Basophils (%) (Auto) 1 % (0-3) Neutrophils # (Auto) 4.2 x10^3uL (1.8-7.7) Lymphocytes # (Auto) 2.0 x10^3/uL (1.0-4.8) Monocytes # (Auto) 0.5 x10^3/uL (0.0-1.1) Eosinophils # (Auto) 0.1 x10^3/uL (0.0-0.7) Basophils # (Auto) 0.0 x10^3/uL (0.0-0.2) Sodium Level 136 mmol/L (136-145) 137 mmol/L (136-145) Potassium Level 3.9 mmol/L (3.5-5.1) 4.3 mmol/L (3.5-5.1) Chloride Level 100 mmol/L (98-107) 101 mmol/L (98-107) Carbon Dioxide Level 23 mmol/L (21-32) 26 mmol/L (21-32) Anion Gap 13 (6-14) 10 (6-14) Blood Urea Nitrogen 11 mg/dL (7-20) 11 mg/dL (7-20) Creatinine 0.7 mg/dL (0.6-1.0) 0.7 mg/dL (0.6-1.0) Estimated GFR (Cockcroft-Gault) 83.5 83.5 Glucose Level 113 mg/dL (70-99) 119 mg/dL (70-99) Calcium Level 9.5 mg/dL (8.5-10.1) 9.2 mg/dL (8.5-10.1) Creatine Kinase 58 U/L (26-192) Creatine Kinase MB (Mass) 1.3 ng/mL (0.0-3.6) Creatine Kinase MB Relative Index % (0-4) Troponin I Quantitative < 0.017 ng/mL (0.000-0.055) < 0.017 ng/mL (0.000-0.055) VG-Fms-T-Type Natriuretic Peptide 525 pg/mL (0-124) BUN/Creatinine Ratio 16 (6-20) Total Bilirubin 0.7 mg/dL (0.2-1.0) Aspartate Amino Transf (AST/SGOT) 23 U/L (15-37) Alanine Aminotransferase (ALT/SGPT) 31 U/L (14-59) Alkaline Phosphatase 128 U/L (46-116) Total Protein 6.1 g/dL (6.4-8.2) Albumin 3.4 g/dL (3.4-5.0) Albumin/Globulin Ratio 1.3 (1.0-1.7) Triglycerides Level 124 mg/dL (0-150) Cholesterol Level 129 mg/dL (0-200) LDL Cholesterol, Calculated 48 mg/dL (0-100) VLDL Cholesterol, Calculated 25 mg/dL (0-40) Non-HDL Cholesterol Calculated 73 mg/dL (0-129) HDL Cholesterol 56 mg/dL (40-60) Cholesterol/HDL Ratio 2.3 Thyroid Stimulating Hormone (TSH) 2.639 uIU/mL (0.358-3.74) Medications Current Medications Labetalol HCl (Normodyne) 20 mg 1X ONCE IVP Last administered on 01/10/17 23: 26; Start 01/10/17 at 23:30; Stop 01/10/17 at 23:31; Status DC Nitroglycerin (Nitro-Bid Oint) 1 inch 1X ONCE TP Last administered on 01:04; Start 01/11/17 at 01:30; Stop 01/11/17 at 01:31; Status DC Morphine Sulfate 2 mg 1X ONCE IV Last administered on 01/11/17 01:05; Start 01/11/17 at 01:30; Stop 01/11/17 at 01:31; Status DC Nitroglycerin (Nitro-Bid Oint) 1 inch STK-MED ONCE .ROUTE ; Start 01/11/17 at 01 :02; Stop 01/11/17 at 01:03; Status DC Morphine Sulfate 2 mg STK-MED ONCE .ROUTE ; Start 01/11/17 at 01:02; Stop at 01:03; Status DC Ondansetron HCl (Zofran) 4 mg PRN Q8HRS PRN IV NAUSEA/VOMITING; Start 01/11/17 at 02:15; Stop 01/12/17 at 02:14 Morphine Sulfate 2 mg PRN Q2HR PRN IV SEVERE PAIN; Start 01/11/17 at 02:15; Stop 01/12/17 at 02:14 Nitroglycerin (Nitrostat) 0.4 mg PRN Q5MIN PRN SL CHEST PAIN; Start 01/11/17 at 02:15; Stop 01/12/17 at 02:14 Nitroglycerin (Nitro-Bid Oint) 1 inch Q6HRS TP Last administered on 01/11/17 05:32; Start 01/11/17 at 06:00 Acetaminophen (Tylenol) 650 mg PRN Q6HRS PRN PO PAIN Last administered on 08:41; Start 01/11/17 at 08:30 Labetalol HCl (Normodyne) 20 mg 1X ONCE IVP Last administered on 01/11/17 11: 05; Start 01/11/17 at 11:00; Stop 01/11/17 at 11:01; Status DC Carvedilol (Coreg) 12.5 mg BIDWMEALS PO Last administered on 01/11/17 12:19; Start 01/11/17 at 12:00 Lisinopril (Prinivil) 40 mg DAILY PO ; Start 01/11/17 at 12:00; Status Cancel Diltiazem HCl (Cardizem 24hr Cd) 120 mg DAILY PO Last administered on 12:19; Start 01/11/17 at 12:00 Aspirin (Ecotrin) 81 mg DAILYWBKFT PO Last administered on 01/11/17 12:18; Start 01/11/17 at 12:00 Atorvastatin Calcium (Lipitor) 80 mg QHS PO ; Start 01/11/17 at 21:00 Labetalol HCl (Normodyne) 20 mg PRN Q2HR PRN IVP HYPERTENSION, SEE COMMENTS; Start 01/11/17 at 11:00 Regadenoson (Lexiscan) 0.4 mg 1X ONCE IV Last administered on 01/11/17 11:35 ; Start 01/11/17 at 11:30; Stop 01/11/17 at 11:31; Status DC Lisinopril (Prinivil) 40 mg DAILY PO Last administered on 01/11/17 12:18; Start 01/11/17 at 12:15 Active Scripts Active Macrobid 100 Mg Capsule (Nitrofurantoin Monohyd/M-Cryst) 100 Mg Capsule 1 Cap PO BID Reported Azithromycin Packet (Azithromycin) 1 Gm Packet 1 Packet PO ONCE Lisinopril 5 Mg Tablet 5 Mg PO DAILY Paxil (Paroxetine Hcl) 20 Mg Tablet 20 Mg PO DAILY Diltiazem Xt (Diltiazem Hcl) 120 Mg Capsule.er 120 Mg PO DAILY Simvastatin 80 Mg Tablet 80 Mg PO HS Coreg (Carvedilol) 12.5 Mg Tablet 1 Tab PO BID Guaifenesin Dm 400-20 Mg Tab (Guaifenesin/Dextromethorphan) 1 Each Tablet 1 Each PO Vitals/I & O Vital Sign - Last 24 Hours 01/10/17 01/10/17 01/10/17 01/10/17 23:02 23:20 23:25 23:26 Temp 98.3 98.3 Pulse 74 72 72 72 Resp 20 20 22 B/P (MAP) 218/103 (141) 195/98 (130) 169/82 (111) 195/98 Pulse Ox 92 95 96 O2 Delivery Room Air Room Air Room Air 01/10/17 01/10/17 01/11/17 01/11/17 23:30 23:45 00:00 00:15 Pulse 68 64 65 64 Resp 22 B/P (MAP) 152/81 (104) 171/84 (113) 162/84 (110) 187/88 (121) Pulse Ox 96 95 94 95 O2 Delivery Room Air Room Air Room Air Room Air 01/11/17 01/11/17 01/11/17 01/11/17 00:30 00:45 01:00 01:04 Pulse 64 66 62 64 Resp 19 B/P (MAP) 179/84 (115) 201/100 (133) 182/98 (126) 182/98 Pulse Ox 95 94 94 O2 Delivery Room Air Room Air Room Air 01/11/17 01/11/17 01/11/17 01/11/17 01:30 01:45 02:57 03:01 Temp 97.8 97.8 Pulse 63 64 67 Resp 20 18 18 B/P (MAP) 175/85 (115) 144/69 (94) 157/89 (111) Pulse Ox 94 93 94 O2 Delivery Room Air Room Air Room Air Room Air 01/11/17 01/11/17 01/11/17 01/11/17 03:26 05:32 07:20 08:19 Temp 97.8 98.4 97.8 98.4 Pulse 67 67 72 Resp 16 B/P (MAP) 157/89 (111) 157/89 140/74 (96) Pulse Ox 94 95 O2 Delivery Room Air Room Air 01/11/17 01/11/17 01/11/17 01/11/17 10:49 11:05 12:18 12:19 Temp 98.3 98.3 Pulse 70 69 74 74 Resp 16 B/P (MAP) 208/90 (129) 208/90 160/85 160/85 Pulse Ox 94 O2 Delivery Room Air 01/11/17 12:19 Pulse 73 B/P (MAP) 160/85 ROSA BERUMEN III DO January 11, 2017 13:29
--- NOTE | 2017-01-11 13:46 | RAD ---
APPROVED REPORT Test Type: Pharmacological Stress Nurse/Tech: Verna Gao R.N. Test Indications: CAD, fatigue, dyspnea on exertion Cardiac History: Stent x2,HTN, smoker Medications: See Electronic Medical Record Medical History: See Electronic Medical Record Resting ECG: SR Resting Heart Rate: 67 bpm Resting Blood Pressure: 154/84mmHg Pretest Chest Pain: No chest pain Nurse/Tech Notes S1S2, lungs CTA Consent: The procedure was explained to the patient in lay terms. Informed consent was witnessed. Magdaleno eout was entered into [employer]. History and Stress Test performed by RT Chris (R) (N) Pharm. Details Pharmacologic stress testing was performed using 0.4mg per 5ml of regadenoson given intravenously ove r 7-10 seconds. Stress Symptoms dyspnea at first, then N/V- yellow emesis. all resolved by the end of recovery period POST EXERCISE Reason for Termination: Infusion complete Max HR: 92 bpm Max Blood Pressure: 222/110mmHg Blood Pressure response to exercise: had a drop at first that did have dizziness w/it, then very elev ated w/ n/v Heart Rate response to exercise: wnl Chest Pain: No. Arrhythmia: No. ST Change: No. INTERPRETATION Stress EKG Conclusion: Baseline EKG showed sinus rhythm. No ischemic changes at peak stress. No arr hythmias. Imaging Protocol IMAGE PROTOCOL: Rest Tc-99m/stress Tc-99m 1 day Rest: Stress: Viability: Radiopharm.Tc99m [id number] Sestamibi [id number] 34mCi Duration 15min. 10min. Img Date 01/11/2017 01/11/2017 Inj-Img [id number]. 60min. Rest Admin Site:IV - Left AntecubitalAdministrator:RT Norma PerezR)(N) Stress Admin Site: IV - Left AntecubitalAdministrator: DANIELLE Dupont STRESS DATA End Diast. Vol.58.0mlAv. Heart Rate69.0bpm End Syst. Vol.12.0mlCO Index BSA3.2L/min Myocardial Xfws421.0gEject. Ondolskq07.0% Stress Rates Pk. Fill Rate3.61EDV/secLVtime Pk. Fill 238.62msec Pk. Empty Rate4.80ESV/secLVtime Pk. Unpsw579.69msec 1/3 Pk. Fill0.75EDV/sec Stress Scores Regional WT0.00Summed WT2.00 Regional WM0.00Summed WM1.00 Study quality was good. Left Ventricular size was Normal at Rest and Stress. Lung uptake was Normal. Left Ventricular ejection fraction is 79%. The rest and stress images show normal perfusion, normal contraction and thickening. LV Perf. Quant 17 Seg. SSS0.00 17 Seg. SRS0.00 17 Seg. SDS0.00 Stress Defect Extent (% LAD)0.00Rest Defect Extent (% LAD)0.00Rev. Defect Extent (% LAD)0.00 Stress Defect Extent (% LCX) 0.00Rest Defect Extent (% LCX)0.00Rev. Defect Extent (% LCX)0.00 Stress Defect Extent (% RCA)0.00Rest Defect Extent (% RCA)0.00Rev. Defect Extent (% RCA)0.00 Stress Defect Extent (% CRISTIN)0.00Rest Defect Extent (% CRISTIN)0.00Rev. Defect Extent (% CRISTIN)0.00 Conclusion 1. Regadenoson cardioisotope stress test did not show any evidence of ischemia or infarct. 2. Normal left ventricular systolic function with ejection fraction calculated at 79%. 3. Low risk for cardiac events.
--- NOTE | 2017-01-11 15:07 | HP ---
ADMIT DATE: 01/11/2017 CHIEF COMPLAINT: Chest pain. HISTORY OF PRESENT ILLNESS: The patient is a pleasant elderly female who presented with chest pain. She also had an accelerated malignant hypertension into the 200s. While in the ER, she complained of more chest pain. She did take some nitroglycerin that did not seem to help too much. It dropped her pressure a little bit. I have discussed the case with the ER physician. We are going to admit the patient, consult Cardiology, and give her some antihypertensives. PAST MEDICAL HISTORY: Hypertension, CHF, UTI, arrhythmias, depression, anxiety, and hyperlipidemia. ALLERGIES: None. FAMILY HISTORY: Coronary artery disease. SOCIAL HISTORY: She does not drink, smoke, or take drugs. MEDICATIONS: Reviewed. Please refer to the MRAD. REVIEW OF SYSTEMS: GENERAL: No history of weight change, weakness, or fevers. SKIN: No bruising, hair changes, or rashes. EYES: No blurred, double, or loss of vision. NOSE AND THROAT: No history of nosebleeds, hoarseness, or sore throat. HEART: The patient complains of chest pain, although it is improving now that her pressure is coming down. LUNGS: Denies cough, hemoptysis, wheezing, or shortness of breath. GASTROINTESTINAL: Denies changes in appetite, nausea, vomiting, diarrhea, or constipation. GENITOURINARY: No history of frequency, urgency, hesitancy, or nocturia. NEUROLOGIC: Denies history of numbness, tingling, tremor, or weakness. PSYCHIATRIC: No history of panic, anxiety, or depression. ENDOCRINE: No history of heat or cold intolerance, polyuria, or polydipsia. EXTREMITIES: Denies muscle weakness, joint pain, pain on walking, or stiffness. PHYSICAL EXAMINATION: VITAL SIGNS: Temperature afebrile, pulse 92, respirations 18, and blood pressure is currently 160/85. The highest of blood pressure was 208/90. GENERAL: She is alert, cooperative. HEART: Normal S1, S2. LUNGS: Clear. ABDOMEN: Soft, positive bowel sounds. EXTREMITIES: Trace edema. SKIN: No rashes. PSYCHIATRIC: Stable. VASCULAR: Good capillary refill. ENDOCRINE: No thyromegaly. LYMPHATICS: No cervical nodes. HEMATOPOIETIC: No bruising. LABORATORY DATA: White count 7, hemoglobin 15.8, and platelets 184. Electrolytes were normal. Troponin is 0. TSH is 2.6. BNP is 525. Chest x-ray is negative. ASSESSMENT AND PLAN: Hypertensive emergency with chest pain. The patient has been admitted. We will check serial enzymes, serial EKGs. We are adding an IV and p.o. antihypertensives. Resumed her home medicines. Cardiac monitoring, PT, and OT. ROSA BERUMEN DO DR: AARON/riki JOB#: [id number] / [id number]
--- NOTE | 2017-01-11 17:45 | PDOC2 ---
NEUROLOGY CONSULT Date of Admission Date of Admission DATE: 01/11/17 TIME: 17:35 Reason for Consult Reason for Consult: IMPRESSION: Hypertensive encephalopathy. Hypertensive urgency, BP 218/103 mmHg. Dizziness. Light headedness. HTN, poorly controlled. Cad, s/p stents x 2. Smoking. Brain atrophy. RECOMMENDATIONS/PLAN: BP control. EEG Treat medical diseases. OT/PT. HCT: No acute findings. HISTORY OF THE PRESENT ILLNESS: 66-y-old female patient with Hx of HTN. She had symptoms of dizziness , light headedness and cognitive impairment to come to the ER. Her BP was 218/ 103 mmHg. After BP control, her symptoms of dizziness and light headedness resolved as she stated. No focalized sensory or motor deficits. PAST MEDICAL HISTORY: Please see above. PAST SURGERY HISTORY: Cardiac stents x 2. Appendectomy ALLERGY: NKDA MEDICATIONS: Refer to [facility] HISTORY: Non contributory. SOCIAL HISTORY: Denies illicit drug use. She smokes 1/4 to 1 pack of cigarettes a day for 40 years. She drinks alcohol occasionally. REVIEW OF SYSTEMS: Constitutional: No malnutrition, weight loss, cachexia. Head: No traumatic brain or head injury. Skin: No edema, or rash. Ear: No infection. Eyes: No vision loss or color blindness. Nose: No bleeding or purulent discharges. Hearing: No hearing decrease. Neck: No injury. Breast: No history of cancer, masses,or discharges. Cardiac: CAD, s/p stents x 2, HTN. Pulmonary: No pneumonia recently. GI: No GI ulcer, GI bleeding. Urinary/genital: UTI. Endocrinologic: No cousin face, craniofacial dysmorphism, polydactyly. Skeletomuscular: No muscular atrophy, deformity. Neurological: see HP. Psychiatric: Denies drug use/abuse. Otherwise, not [id number] review of systems. PHYSICAL EXAMINATION: General appearance is in subacute distress. HEENT: Normocephalic and nontraumatic. Eyes, nose, ears, and throat are unremarkable. Neck is supple. No lymphadenopathy. No crepitus. Cardiovascular: S1, S2, regular rate and rhythm. Pulmonary: Clear to auscultation bilaterally. Abdomen: Bowel sounds are positive. Extremities: No rash, lesions, or edema. No restriction of range of motion NEUROLOGICAL EXAMINATION: Alert Oriented to time, place and person. PERRL. EOMI. CN: no focal findings. Muscle tone: within normal. Muscle strength: 5 DTR: 2 Plantar reflex: Flexor response bilaterally Gait: not examined in bed. Sensory exam: no abnormal findings. No cerebellar signs elicited. F-T-N test fine. Current Medications Current Medications Current Medications Labetalol HCl (Normodyne) 20 mg 1X ONCE IVP Last administered on 01/10/17 23: 26; Start 01/10/17 at 23:30; Stop 01/10/17 at 23:31; Status DC Nitroglycerin (Nitro-Bid Oint) 1 inch 1X ONCE TP Last administered on 01:04; Start 01/11/17 at 01:30; Stop 01/11/17 at 01:31; Status DC Morphine Sulfate 2 mg 1X ONCE IV Last administered on 01/11/17 01:05; Start 01/11/17 at 01:30; Stop 01/11/17 at 01:31; Status DC Nitroglycerin (Nitro-Bid Oint) 1 inch STK-MED ONCE .ROUTE ; Start 01/11/17 at 01 :02; Stop 01/11/17 at 01:03; Status DC Morphine Sulfate 2 mg STK-MED ONCE .ROUTE ; Start 01/11/17 at 01:02; Stop at 01:03; Status DC Ondansetron HCl (Zofran) 4 mg PRN Q8HRS PRN IV NAUSEA/VOMITING; Start 01/11/17 at 02:15; Stop 01/12/17 at 02:14 Morphine Sulfate 2 mg PRN Q2HR PRN IV SEVERE PAIN; Start 01/11/17 at 02:15; Stop 01/12/17 at 02:14 Nitroglycerin (Nitrostat) 0.4 mg PRN Q5MIN PRN SL CHEST PAIN; Start 01/11/17 at 02:15; Stop 01/12/17 at 02:14 Nitroglycerin (Nitro-Bid Oint) 1 inch Q6HRS TP Last administered on 01/11/17 05:32; Start 01/11/17 at 06:00 Acetaminophen (Tylenol) 650 mg PRN Q6HRS PRN PO PAIN Last administered on 08:41; Start 01/11/17 at 08:30 Labetalol HCl (Normodyne) 20 mg 1X ONCE IVP Last administered on 01/11/17 11: 05; Start 01/11/17 at 11:00; Stop 01/11/17 at 11:01; Status DC Carvedilol (Coreg) 12.5 mg BIDWMEALS PO Last administered on 01/11/17 17:34; Start 01/11/17 at 12:00 Lisinopril (Prinivil) 40 mg DAILY PO ; Start 01/11/17 at 12:00; Status Cancel Diltiazem HCl (Cardizem 24hr Cd) 120 mg DAILY PO Last administered on 12:19; Start 01/11/17 at 12:00 Aspirin (Ecotrin) 81 mg DAILYWBKFT PO Last administered on 01/11/17 12:18; Start 01/11/17 at 12:00 Atorvastatin Calcium (Lipitor) 80 mg QHS PO ; Start 01/11/17 at 21:00 Labetalol HCl (Normodyne) 20 mg PRN Q2HR PRN IVP HYPERTENSION, SEE COMMENTS; Start 01/11/17 at 11:00 Regadenoson (Lexiscan) 0.4 mg 1X ONCE IV Last administered on 01/11/17 11:35 ; Start 01/11/17 at 11:30; Stop 01/11/17 at 11:31; Status DC Lisinopril (Prinivil) 40 mg DAILY PO Last administered on 01/11/17 12:18; Start 01/11/17 at 12:15 Active Scripts Active Macrobid 100 Mg Capsule (Nitrofurantoin Monohyd/M-Cryst) 100 Mg Capsule 1 Cap PO BID Reported Azithromycin Packet (Azithromycin) 1 Gm Packet 1 Packet PO ONCE Lisinopril 5 Mg Tablet 5 Mg PO DAILY Paxil (Paroxetine Hcl) 20 Mg Tablet 20 Mg PO DAILY Diltiazem Xt (Diltiazem Hcl) 120 Mg Capsule.er 120 Mg PO DAILY Simvastatin 80 Mg Tablet 80 Mg PO HS Coreg (Carvedilol) 12.5 Mg Tablet 1 Tab PO BID Guaifenesin Dm 400-20 Mg Tab (Guaifenesin/Dextromethorphan) 1 Each Tablet 1 Each PO Allergies Allergies: Coded Allergies: No Known Drug Allergies (Unverified , 06/14/14) pt states allergy to "antibiotic" which gives her severe stomach cramps. Pt unable to identify this antibiotic, [facility] has NKDA listed for this patient. Vitals VITALS Vital Signs Date Time Temp Pulse Resp B/P (MAP) Pulse Ox O2 Delivery O2 Flow Rate FiO2 01/11/17 17:34 71 134/80 01/11/17 15:18 18 96 Room Air 01/11/17 10:49 98.3 98.3 Labs Labs Laboratory Tests Test 01/10/17 23:30 01/11/17 08:15 01/11/17 14:30 White Blood Count 6.9 x10^3/uL (4.0-11.0) Red Blood Count 4.82 x10^6/uL (3.50-5.40) Hemoglobin 15.8 g/dL (12.0-15.5) Hematocrit 46.4 % (36.0-47.0) Mean Corpuscular Volume 96 fL (79-100) Mean Corpuscular Hemoglobin 33 pg (25-35) Mean Corpuscular Hemoglobin Concent 34 g/dL (31-37) Red Cell Distribution Width 14.0 % (11.5-14.5) Platelet Count 184 x10^3/uL (140-400) Neutrophils (%) (Auto) 61 % (31-73) Lymphocytes (%) (Auto) 30 % (24-48) Monocytes (%) (Auto) 8 % (0-9) Eosinophils (%) (Auto) 2 % (0-3) Basophils (%) (Auto) 1 % (0-3) Neutrophils # (Auto) 4.2 x10^3uL (1.8-7.7) Lymphocytes # (Auto) 2.0 x10^3/uL (1.0-4.8) Monocytes # (Auto) 0.5 x10^3/uL (0.0-1.1) Eosinophils # (Auto) 0.1 x10^3/uL (0.0-0.7) Basophils # (Auto) 0.0 x10^3/uL (0.0-0.2) Sodium Level 136 mmol/L (136-145) 137 mmol/L (136-145) Potassium Level 3.9 mmol/L (3.5-5.1) 4.3 mmol/L (3.5-5.1) Chloride Level 100 mmol/L (98-107) 101 mmol/L (98-107) Carbon Dioxide Level 23 mmol/L (21-32) 26 mmol/L (21-32) Anion Gap 13 (6-14) 10 (6-14) Blood Urea Nitrogen 11 mg/dL (7-20) 11 mg/dL (7-20) Creatinine 0.7 mg/dL (0.6-1.0) 0.7 mg/dL (0.6-1.0) Estimated GFR (Cockcroft-Gault) 83.5 83.5 Glucose Level 113 mg/dL (70-99) 119 mg/dL (70-99) Calcium Level 9.5 mg/dL (8.5-10.1) 9.2 mg/dL (8.5-10.1) Creatine Kinase 58 U/L (26-192) Creatine Kinase MB (Mass) 1.3 ng/mL (0.0-3.6) Creatine Kinase MB Relative Index % (0-4) Troponin I Quantitative < 0.017 ng/mL (0.000-0.055) < 0.017 ng/mL (0.000-0.055) < 0.017 ng/mL (0.000-0.055) [id number]-Type Natriuretic Peptide 525 pg/mL (0-124) BUN/Creatinine Ratio 16 (6-20) Total Bilirubin 0.7 mg/dL (0.2-1.0) Aspartate Amino Transf (AST/SGOT) 23 U/L (15-37) Alanine Aminotransferase (ALT/SGPT) 31 U/L (14-59) Alkaline Phosphatase 128 U/L (46-116) Total Protein 6.1 g/dL (6.4-8.2) Albumin 3.4 g/dL (3.4-5.0) Albumin/Globulin Ratio 1.3 (1.0-1.7) Triglycerides Level 124 mg/dL (0-150) Cholesterol Level 129 mg/dL (0-200) LDL Cholesterol, Calculated 48 mg/dL (0-100) VLDL Cholesterol, Calculated 25 mg/dL (0-40) Non-HDL Cholesterol Calculated 73 mg/dL (0-129) HDL Cholesterol 56 mg/dL (40-60) Cholesterol/HDL Ratio 2.3 Thyroid Stimulating Hormone (TSH) 2.639 uIU/mL (0.358-3.74) Laboratory Tests Test 01/10/17 23:30 01/11/17 08:15 01/11/17 14:30 White Blood Count 6.9 x10^3/uL (4.0-11.0) Red Blood Count 4.82 x10^6/uL (3.50-5.40) Hemoglobin 15.8 g/dL (12.0-15.5) Hematocrit 46.4 % (36.0-47.0) Mean Corpuscular Volume 96 fL (79-100) Mean Corpuscular Hemoglobin 33 pg (25-35) Mean Corpuscular Hemoglobin Concent 34 g/dL (31-37) Red Cell Distribution Width 14.0 % (11.5-14.5) Platelet Count 184 x10^3/uL (140-400) Neutrophils (%) (Auto) 61 % (31-73) Lymphocytes (%) (Auto) 30 % (24-48) Monocytes (%) (Auto) 8 % (0-9) Eosinophils (%) (Auto) 2 % (0-3) Basophils (%) (Auto) 1 % (0-3) Neutrophils # (Auto) 4.2 x10^3uL (1.8-7.7) Lymphocytes # (Auto) 2.0 x10^3/uL (1.0-4.8) Monocytes # (Auto) 0.5 x10^3/uL (0.0-1.1) Eosinophils # (Auto) 0.1 x10^3/uL (0.0-0.7) Basophils # (Auto) 0.0 x10^3/uL (0.0-0.2) Sodium Level 136 mmol/L (136-145) 137 mmol/L (136-145) Potassium Level 3.9 mmol/L (3.5-5.1) 4.3 mmol/L (3.5-5.1) Chloride Level 100 mmol/L (98-107) 101 mmol/L (98-107) Carbon Dioxide Level 23 mmol/L (21-32) 26 mmol/L (21-32) Anion Gap 13 (6-14) 10 (6-14) Blood Urea Nitrogen 11 mg/dL (7-20) 11 mg/dL (7-20) Creatinine 0.7 mg/dL (0.6-1.0) 0.7 mg/dL (0.6-1.0) Estimated GFR (Cockcroft-Gault) 83.5 83.5 Glucose Level 113 mg/dL (70-99) 119 mg/dL (70-99) Calcium Level 9.5 mg/dL (8.5-10.1) 9.2 mg/dL (8.5-10.1) Creatine Kinase 58 U/L (26-192) Creatine Kinase MB (Mass) 1.3 ng/mL (0.0-3.6) Creatine Kinase MB Relative Index % (0-4) Troponin I Quantitative < 0.017 ng/mL (0.000-0.055) < 0.017 ng/mL (0.000-0.055) < 0.017 ng/mL (0.000-0.055) [id number]-[id number]-Type Natriuretic Peptide 525 pg/mL (0-124) BUN/Creatinine Ratio 16 (6-20) Total Bilirubin 0.7 mg/dL (0.2-1.0) Aspartate Amino Transf (AST/SGOT) 23 U/L (15-37) Alanine Aminotransferase (ALT/SGPT) 31 U/L (14-59) Alkaline Phosphatase 128 U/L (46-116) Total Protein 6.1 g/dL (6.4-8.2) Albumin 3.4 g/dL (3.4-5.0) Albumin/Globulin Ratio 1.3 (1.0-1.7) Triglycerides Level 124 mg/dL (0-150) Cholesterol Level 129 mg/dL (0-200) LDL Cholesterol, Calculated 48 mg/dL (0-100) VLDL Cholesterol, Calculated 25 mg/dL (0-40) Non-HDL Cholesterol Calculated 73 mg/dL (0-129) HDL Cholesterol 56 mg/dL (40-60) Cholesterol/HDL Ratio 2.3 Thyroid Stimulating Hormone (TSH) 2.639 uIU/mL (0.358-3.74) CORETTA JIM MD January 11, 2017 17:45
[2017-01-11] MEDS: NITROFURANTOIN MONOHYD/M-CRYST 100 MG CAPSULE. PO SCH (20:32)
[2017-01-11] MEDS ORDERED: ATORVASTATIN CALCIUM 40 MG TABLET. PO SCH (21:00)
[2017-01-11 21:17] LABS: BARBITURATES NEG (NEG); BENZODIAZEPINES NEG (NEG); CANNABINOIDS NEG (NEG); COCAINE NEG (NEG); METHADONE NEG (NEG); OPIATES POS (NEG); PHENCYCLIDINE NEG (NEG)
[2017-01-12 03:40] VITALS: BP 139/68
[2017-01-12 04:33] LABS: BASO % 0 % (0-3); EOS % 2 % (0-3); HEMATOCRIT 44.3 % (36.0-47.0); HEMOGLOBIN 14.8 g/dL (12.0-15.5); LYMPH # 2.3 x10^3/uL (1.0-4.8); LYMPH % 38 % (24-48); MEAN CORPUSCULAR HEMOGLOBIN 33 pg (25-35); MEAN CORPUSCULAR HGB CONC 33 g/dL (31-37); MEAN CORPUSCULAR VOLUME 98 fL (79-100); MONO % 9 % (0-9); NEUT % 51 % (31-73); PLATELET COUNT 159 x10^3/uL (140-400); RED BLOOD COUNT 4.51 x10^6/uL (3.50-5.40); RED CELL DISTRIBUTION WIDTH 14.2 % (11.5-14.5)
[2017-01-12] MEDS: NITROGLYCERIN OINT 1 GM PACKET. TP SCH ×3 (06:52→12:00)
[2017-01-12 07:00] VITALS: BP 141/64
[2017-01-12 07:45] LABS: CREATININE 0.6 mg/dL (0.6-1.0); GFR 99.7; POTASSIUM 4.1 mmol/L (3.5-5.1)
[2017-01-12] MEDS: NITROFURANTOIN MONOHYD/M-CRYST 100 MG CAPSULE. PO SCH (08:44)
[2017-01-12] MEDS: LISINOPRIL 40 MG TABLET. PO SCH (08:44)
[2017-01-12] MEDS: ASPIRIN ENTERIC COATED 81 MG TABLET.DR. PO SCH (08:44)
[2017-01-12] MEDS: CARVEDILOL 12.5 MG TABLET. PO SCH (08:45)
[2017-01-12] MEDS: ACETAMINOPHEN 325 MG TABLET. PO PRN (08:48)
--- NOTE | 2017-01-12 10:20 | RAD ---
APPROVED REPORT Patient Location: IN-PATIENT Laterality:Bilateral Indications Dizziness and Vertigo Risk Factors Hypertension: Smoking Doppler Spectral Velocity Analysis Right Left pCCA 90/13 cm/spCCA 76/13 cm/s mCCA 74/15 cm/smCCA 69/18 cm/s dCCA 61/17 cm/sdCCA 67/17 cm/s ECA 76/ cm/sECA 98/ cm/s pICA 60/16 cm/spICA 122/36 cm/s Gonzalo 53/17 cm/smICA 89/24 cm/s dICA 74/23 cm/sdICA 105/32 cm/s Vert. 44/ cm/sVert. 35/ cm/s ICA/CCA 0.82ICA/CCA 1.61 Findings On andrade scale images of the right carotid arterial system there is mild intimal hyperplasia and plaqu e. The spectral waveforms are grossly within normal limits suggestive of 0-50% stenosis. No turbulenc e or velocity acceleration is noted on color flow and spectral imaging. The vertebral velocity is ant egrade. Andrade scale images of the left carotid arterial system again reveal mild intimal hyperplasia and plaqu e. The spectral waveforms are grossly within normal limits again suggestive of 0-50% stenosis. No tur bulence or velocity acceleration is noted. The vertebral velocity is antegrade. Critical Notification Critical Value: No <Conclusion> No high-grade flow limiting stenosis identified in the bilateral carotid arterial system.
[2017-01-12 11:00] VITALS: BP 136/65
--- NOTE | 2017-01-12 12:20 | PDOC ---
CARDIO Progress Notes Date and Time Date of Service 01/12/2017 Time of Evaluation 1210 Subjective Subjective: No Chest Pain, No shortness of breath, No Palpitations, No Dizziness Vitals Vitals Vital Signs Date Time Temp Pulse Resp B/P (MAP) Pulse Ox O2 Delivery O2 Flow Rate FiO2 01/12/17 11:00 97.6 72 18 136/65 (88) 92 Room Air 97.6 Weight Weight [ ] Input and Output Intake and Output Intake and Output 01/12/17 07:00 Intake Total 1480 ml Output Total 150 ml Balance 1330 ml Intake Oral 1480 ml Output Urine Total 150 ml # Voids 4 # Bowel Movements 1 Laboratory Labs Laboratory Tests Test 01/11/17 14:30 01/11/17 21:00 01/12/17 04:00 01/12/17 07:25 Troponin I Quantitative < 0.017 ng/mL (0.000-0.055) Urine Opiates Screen Pos (NEG) Urine Methadone Screen Neg (NEG) Urine Barbiturates Neg (NEG) Urine Phencyclidine Screen Neg (NEG) Urine Amphetamine/Methamphetamine Neg (NEG) Urine Benzodiazepines Screen Neg (NEG) Urine Cocaine Screen Neg (NEG) Urine Cannabinoids Screen Neg (NEG) Urine Ethyl Alcohol Neg (NEG) White Blood Count 6.0 x10^3/uL (4.0-11.0) Red Blood Count 4.51 x10^6/uL (3.50-5.40) Hemoglobin 14.8 g/dL (12.0-15.5) Hematocrit 44.3 % (36.0-47.0) Mean Corpuscular Volume 98 fL (79-100) Mean Corpuscular Hemoglobin 33 pg (25-35) Mean Corpuscular Hemoglobin Concent 33 g/dL (31-37) Red Cell Distribution Width 14.2 % (11.5-14.5) Platelet Count 159 x10^3/uL (140-400) Neutrophils (%) (Auto) 51 % (31-73) Lymphocytes (%) (Auto) 38 % (24-48) Monocytes (%) (Auto) 9 % (0-9) Eosinophils (%) (Auto) 2 % (0-3) Basophils (%) (Auto) 0 % (0-3) Neutrophils # (Auto) 3.0 x10^3uL (1.8-7.7) Lymphocytes # (Auto) 2.3 x10^3/uL (1.0-4.8) Monocytes # (Auto) 0.5 x10^3/uL (0.0-1.1) Eosinophils # (Auto) 0.1 x10^3/uL (0.0-0.7) Basophils # (Auto) 0.0 x10^3/uL (0.0-0.2) Sodium Level 137 mmol/L (136-145) Potassium Level 4.1 mmol/L (3.5-5.1) Chloride Level 103 mmol/L (98-107) Carbon Dioxide Level 26 mmol/L (21-32) Anion Gap 8 (6-14) Blood Urea Nitrogen 8 mg/dL (7-20) Creatinine 0.6 mg/dL (0.6-1.0) Estimated GFR (Cockcroft-Gault) 99.7 Glucose Level 119 mg/dL (70-99) Calcium Level 9.0 mg/dL (8.5-10.1) Physical Exam HEENT: Neck Supple W Full Motion Chest: Symmetric LUNGS: Clear to Auscultation Heart: S1S2, RRR Abdomen: Soft N/T Extremities: No Calf Tenderness Neurology: alert, oriented, follow commands Assessment Assessment 1. Malignant HTN: Better controlled 2. Presyncope: likely vagal induced by #1, no further episode. Mild bilateral carotid artery disease. 3. CAD: PCI/stent to RCA/LCx. No CP. MPI unremarkable for ischemia. 4. HLP: controlled 5. Likely COPD with continued tobaccoism 6. Mechanical fall with low back pain: slipped and fell on carpet few days ago. lumbar Xray with possible L3 fracture. Defer to PCP 7. Probable MEET 8. Cerebral atrophy with likely advanced chronic microvascular ischemic injury: neurology following Recommendations 1. Continue with lifestyle modification, smoking cessation, Na control. 2. PFTs reviewed, albuterol PRN 3. BP meds adjustment effective and continue current regimen. Will review home meds and will modify accordingly 4. Will need outpt MEET workup, defer to PCP 5. Follow up in office in 4 weeks. DINA LONGORIA APRN January 12, 2017 12:20
[2017-01-12] MEDS ORDERED: LISI40TA PO (12:23)
--- NOTE | 2017-01-12 15:39 | PDOC ---
PROGRESS NOTES Assessment Assessment Hypertensive encephalopathy. Hypertensive urgency, BP 218/103 mmHg. Dizziness. Light headedness. HTN, poorly controlled. Cad, s/p stents x 2. Smoking. Brain atrophy. RECOMMENDATIONS/PLAN: BP control. EEG, can be done as outpatient since pending discharges. Treat medical diseases. OT/PT. FU with PCP. FU with Neurology as needed. HCT: No acute findings. HISTORY OF THE PRESENT ILLNESS: 66-y-old female patient with Hx of HTN. She had symptoms of dizziness , light headedness and cognitive impairment to come to the ER. Her BP was 218/ 103 mmHg. After BP control, her symptoms of dizziness and light headedness resolved as she stated. No focalized sensory or motor deficits. PAST MEDICAL HISTORY: Please see above. PAST SURGERY HISTORY: Cardiac stents x 2. Appendectomy ALLERGY: NKDA MEDICATIONS: Refer to [facility] FAMILY HISTORY: Non contributory. SOCIAL HISTORY: Denies illicit drug use. She smokes 1/4 to 1 pack of cigarettes a day for 40 years. She drinks alcohol occasionally. REVIEW OF SYSTEMS: Constitutional: No malnutrition, weight loss, cachexia. Head: No traumatic brain or head injury. Skin: No edema, or rash. Ear: No infection. Eyes: No vision loss or color blindness. Nose: No bleeding or purulent discharges. Hearing: No hearing decrease. Neck: No injury. Breast: No history of cancer, masses,or discharges. Cardiac: CAD, s/p stents x 2, HTN. Pulmonary: No pneumonia recently. GI: No GI ulcer, GI bleeding. Urinary/genital: UTI. Endocrinologic: No cousin face, craniofacial dysmorphism, polydactyly. Skeletomuscular: No muscular atrophy, deformity. Neurological: see HP. Psychiatric: Denies drug use/abuse. Otherwise, not [id number] review of systems. PHYSICAL EXAMINATION: General appearance is in subacute distress. HEENT: Normocephalic and nontraumatic. Eyes, nose, ears, and throat are unremarkable. Neck is supple. No lymphadenopathy. No crepitus. Cardiovascular: S1, S2, regular rate and rhythm. Pulmonary: Clear to auscultation bilaterally. Abdomen: Bowel sounds are positive. Extremities: No rash, lesions, or edema. No restriction of range of motion NEUROLOGICAL EXAMINATION: Alert Oriented to time, place and person. PERRL. EOMI. CN: no focal findings. Muscle tone: within normal. Muscle strength: 5 DTR: 2 Plantar reflex: Flexor response bilaterally Gait: able to walk. Sensory exam: no abnormal findings. No cerebellar signs elicited. F-T-N test fine. Objective Objective Vital Signs Date Time Temp Pulse Resp B/P (MAP) Pulse Ox O2 Delivery O2 Flow Rate FiO2 01/12/17 11:00 97.6 72 18 136/65 (88) 92 Room Air 97.6 Intake and Output 01/12/17 07:00 Intake Total 1480 ml Output Total 150 ml Balance 1330 ml Intake Oral 1480 ml Output Urine Total 150 ml # Voids 4 # Bowel Movements 1 Vitals Signs Vitals VS - Last 72 Hours, by Label Date Time Temp Pulse Resp B/P (MAP) Pulse Ox O2 Delivery O2 Flow Rate FiO2 01/12/17 11:00 97.6 72 18 136/65 (88) 92 Room Air 97.6 01/12/17 08:45 72 141/64 01/12/17 08:45 72 141/64 01/12/17 08:44 72 141/64 01/12/17 08:04 Room Air 01/12/17 07:00 98.6 73 18 141/64 (89) 95 Room Air 98.6 01/12/17 06:52 69 158/78 01/12/17 03:40 98.5 72 139/68 (91) 94 Room Air 98.5 01/11/17 23:20 98.4 68 20 149/83 (105) 95 Room Air 98.4 01/11/17 19:50 Room Air 01/11/17 19:40 98.1 69 19 131/71 (91) 94 Room Air 98.1 01/11/17 17:34 71 134/80 01/11/17 15:18 77 18 154/66 (95) 96 Room Air 01/11/17 12:19 73 160/85 01/11/17 12:19 74 160/85 01/11/17 12:18 74 160/85 01/11/17 11:05 69 208/90 01/11/17 10:49 98.3 70 16 208/90 (129) 94 Room Air 98.3 01/11/17 08:19 Room Air 01/11/17 07:20 98.4 72 16 140/74 (96) 95 Room Air 98.4 Laboratory Laboratory Laboratory Tests Test 01/11/17 21:00 01/12/17 04:00 01/12/17 07:25 Urine Opiates Screen Pos (NEG) Urine Methadone Screen Neg (NEG) Urine Barbiturates Neg (NEG) Urine Phencyclidine Screen Neg (NEG) Urine Amphetamine/Methamphetamine Neg (NEG) Urine Benzodiazepines Screen Neg (NEG) Urine Cocaine Screen Neg (NEG) Urine Cannabinoids Screen Neg (NEG) Urine Ethyl Alcohol Neg (NEG) White Blood Count 6.0 x10^3/uL (4.0-11.0) Red Blood Count 4.51 x10^6/uL (3.50-5.40) Hemoglobin 14.8 g/dL (12.0-15.5) Hematocrit 44.3 % (36.0-47.0) Mean Corpuscular Volume 98 fL (79-100) Mean Corpuscular Hemoglobin 33 pg (25-35) Mean Corpuscular Hemoglobin Concent 33 g/dL (31-37) Red Cell Distribution Width 14.2 % (11.5-14.5) Platelet Count 159 x10^3/uL (140-400) Neutrophils (%) (Auto) 51 % (31-73) Lymphocytes (%) (Auto) 38 % (24-48) Monocytes (%) (Auto) 9 % (0-9) Eosinophils (%) (Auto) 2 % (0-3) Basophils (%) (Auto) 0 % (0-3) Neutrophils # (Auto) 3.0 x10^3uL (1.8-7.7) Lymphocytes # (Auto) 2.3 x10^3/uL (1.0-4.8) Monocytes # (Auto) 0.5 x10^3/uL (0.0-1.1) Eosinophils # (Auto) 0.1 x10^3/uL (0.0-0.7) Basophils # (Auto) 0.0 x10^3/uL (0.0-0.2) Sodium Level 137 mmol/L (136-145) Potassium Level 4.1 mmol/L (3.5-5.1) Chloride Level 103 mmol/L (98-107) Carbon Dioxide Level 26 mmol/L (21-32) Anion Gap 8 (6-14) Blood Urea Nitrogen 8 mg/dL (7-20) Creatinine 0.6 mg/dL (0.6-1.0) Estimated GFR (Cockcroft-Gault) 99.7 Glucose Level 119 mg/dL (70-99) Calcium Level 9.0 mg/dL (8.5-10.1) Medication Medications Current Medications Atorvastatin Calcium (Lipitor) 80 mg QHS PO Last administered on 01/11/17 20: 31; Start 01/11/17 at 21:00; Stop 01/12/17 at 13:28; Status DC Nitrofurantoin Macrocrystals (Macrobid) 100 mg BID PO Last administered on 01/12 08:44; Start 01/11/17 at 21:00; Stop 01/12/17 at 13:28; Status DC Comment Review of Relevant I have reviewed the following items anders (where applicable) has been applied. CORETTA JIM MD January 12, 2017 15:39
--- NOTE | 2017-01-12 23:51 | DS ---
DATE OF DISCHARGE: 01/12/2017 ADMISSION DIAGNOSES: Malignant hypertension and chest pain. DISCHARGE DIAGNOSES: Resolving malignant hypertension, atypical chest pain. HOSPITAL COURSE: The patient is a pleasant 66-year-old female who presented with malignant hypertension and angina. She was admitted. We got her blood pressure under control with IV antihypertensives. We have now changed her to p.o. We did check serial enzymes, serial EKGs. She got a myocardial perfusion imaging study, which was negative. We plan to discharge with close outpatient followup. DISPOSITION: Home. ACTIVITY: As tolerated. DIET: Low sodium. MEDICATIONS: Please see the MRAD. TOTAL TIME: 36 minutes. ROSA BERUMEN DO DR: AARON/riki JOB#: [id number] / [id number]
--- NOTE | 2017-01-15 12:24 | RESP ---
DATE OF SERVICE: 01/12/2017 ATTENDING PHYSICIAN: Dr. Vu. DICTATING PHYSICIAN: Dr. Arce. The patient underwent full pulmonary function testing on 01/12/2017, FEV1 to FVC ratio was 90%, FEV1 was 80% of predicted at 2.05 liters, FVC was 89% of predicted at 89%. There was no significant bronchodilator response. Total lung capacity was elevated. Residual volume was elevated. Diffusion capacity was preserved. IMPRESSION: 1. Minimal airflow limitation. 2. Mild air trapping. 3. No significant bronchodilator response. MILI ARCE MD DR: TRUE/riki JOB#: [id number] / [id number]
== END 2017-01-12 13:10 | disposition home or self-care (01) ==
LOC: ER 22:56 → 2 NORTH 01-11 01:00
PROVIDERS: ADMIT Internal Medicine; ATTEND Internal Medicine
DX: I11.0 Hypertensive heart disease with heart failure (principal); R07.89 Other chest pain; I50.9 Heart failure, unspecified; I16.1 Hypertensive emergency; F41.9 Anxiety disorder, unspecified; E78.5 Hyperlipidemia, unspecified; F32.9 Major depressive disorder, single episode, unspecified; I67.4 Hypertensive encephalopathy; I25.119 Atherosclerotic heart disease of native coronary artery with unspecified angina pectoris; G31.9 Degenerative disease of nervous system, unspecified; G47.33 Obstructive sleep apnea (adult) (pediatric); J44.9 Chronic obstructive pulmonary disease, unspecified; F17.210 Nicotine dependence, cigarettes, uncomplicated; Z95.5 Presence of coronary angioplasty implant and graft; Z82.49 Family history of ischemic heart disease and other diseases of the circulatory system
CPT/HCPCS: 36415; 70450; 71010; 78452; 80048; 80053; 80061; 82553; 83880; 84443; 84484; 85027; 93005; 93017; 93880; 94060; 94729; 96374; 96375; 96376; 99291; A9500; G0378; G0481; J2270; J2785; J3490; G0379

== ENCOUNTER → 2017-04-09 | Outpatient (CLI) | payer BC ==
[~2017-04-09] MED LIST changes: -AZIT1PAC7 PO; +AZIT1PAC9 PO; +LISI40TA PO; -PARO20TA55 PO; +PARO20TA99 PO
[2017-04-09 11:26] LABS: ALT (SGPT) 31 U/L (14-59); CREATINE KINASE 66 U/L (26-192)
[2017-04-09 11:35] LABS: FREE T4 1.09 ng/dL (0.76-1.46)
== END | disposition home or self-care (01) ==
LOC: LAB 10:36
PROVIDERS: ATTEND Nurse Practitioner
DX: E78.5 Hyperlipidemia, unspecified (principal)
CPT/HCPCS: 36415; 82550; 84439; 84443; 84460

== ENCOUNTER 2017-06-08 05:41 | Inpatient (IN) | payer BC, MEDICARE ==
[~2017-06-08] VITALS: Ht 167.6 cm; Wt 69.4 kg
[2017-06-08] VITALS (11 sets, daily range): BP systolic 92–168; BP diastolic 49–92
[2017-06-08] MEDS ORDERED: ASPIRIN CHEWABLE 81 MG TABLET. PO ONE (06:00)
--- NOTE | 2017-06-08 06:01 | PHYS DOC ---
Past Medical History Past Medical History: Anxiety, CAD, Depression, Heart Disease, Hypertension Past Surgical History: Angioplasty, Appendectomy, Other Additional Past Surgical Histo: 2 Cardiac stents. Alcohol Use: Occasionally Drug Use: None Adult General Chief Complaint Chief Complaint: CHEST PAIN HPI HPI Patient is a 66 year old F who presents with chest pain that started while pressure teeth this morning. Patient states the chest pain is central and radiating to her left shoulder. Patient states she's had a history of heart attacks with stent placement. Dr. Hewitt is her hooker machine tender. Patient states her cardiac risk factors are smoking, hypertension, hyperlipidemia, she does not have diabetes. Patient denies a history of DVTs or PEs. Patient states the pain is nonexertional. Patient states she took aspirin and nitroglycerin at home prior to coming emergency room. Patient rates her her pain in the emergency room a 6 out of 10. Patient denies any fevers or shortness of breath. Patient denies any nausea/vomiting/diarrhea. Patient has no other complaints. Review of Systems Review of Systems GEN: Denies fevers, chills, sweats HEENT: Denies blurred vision, sore throat CV: Chest pain RESP: Denies shortness of air, cough GI: Denies n/v/d NEURO: Denies confusion, dizziness MSK: Denies weakness, joint pain/swelling Current Medications Current Medications Current Medications Medications (Trade) Dose Ordered Sig/Pipo Start Time Stop Time Status Last Admin Dose Admin Aspirin (Children'S Aspirin) 324 mg 1X ONCE 06/08/17 06:00 06/08/17 06:01 DC 06/08/17 05:57 324 MG Fentanyl Citrate (Fentanyl 2ml Vial) 100 mcg STK-MED ONCE 06/08/17 06:39 06/08/17 06:40 DC Heparin Sodium (Porcine) (Heparin Sodium) 4,000 unit 1X ONCE 06/08/17 06:45 06/08/17 06:46 DC Heparin Sodium/ Sodium Chloride 1,000 ml @ As Directed STK-MED ONCE 06/08/17 06:39 06/08/17 06:40 DC Iodixanol (Visipaque 320) 100 ml STK-MED ONCE 06/08/17 06:38 06/08/17 06:39 DC Lidocaine HCl 20 ml STK-MED ONCE 06/08/17 06:38 06/08/17 06:39 DC Midazolam HCl (Versed) 2 mg STK-MED ONCE 06/08/17 06:39 06/08/17 06:40 DC Nitroglycerin (Nitrostat) 0.4 mg STK-MED ONCE 06/08/17 06:06 06/08/17 06:07 DC Sodium Chloride 1,000 ml @ 1,000 mls/hr 1X ONCE 06/08/17 07:00 06/08/17 07:59 UNV Allergies Allergies Allergies Coded Allergies Type Severity Reaction Last Updated Verified No Known Drug Allergies 06/14/14 No Physical Exam Physical Exam GEN.: No apparent distress. Alert and oriented. HEENT: Head is normocephalic, atraumatic NECK: Supple. LUNGS: CTAB. HEART: RRR, S1, S2 present. Peripheral pulses intact ABDOMEN: Soft, nontender. Positive bowel sounds. EXTREMITIES: Without any cyanosis. NEUROLOGIC: Normal speech, normal tone PSYCHIATRIC: Normal affect, normal mood. SKIN: No ulcerations Current Patient Data Vital Signs Vital Signs Date Time Temp Pulse Resp B/P (MAP) Pulse Ox O2 Delivery O2 Flow Rate FiO2 06/08/17 06:44 67 138/79 06/08/17 06:04 19 94 Room Air 06/08/17 05:45 97.6 97.6 Lab Values Laboratory Tests Test 06/08/17 05:55 White Blood Count 5.0 x10^3/uL (4.0-11.0) Red Blood Count 4.59 x10^6/uL (3.50-5.40) Hemoglobin 14.9 g/dL (12.0-15.5) Hematocrit 43.6 % (36.0-47.0) Mean Corpuscular Volume 95 fL (79-100) Mean Corpuscular Hemoglobin 33 pg (25-35) Mean Corpuscular Hemoglobin Concent 34 g/dL (31-37) Red Cell Distribution Width 13.6 % (11.5-14.5) Platelet Count 232 x10^3/uL (140-400) Neutrophils (%) (Auto) 51 % (31-73) Lymphocytes (%) (Auto) 36 % (24-48) Monocytes (%) (Auto) 9 % (0-9) Eosinophils (%) (Auto) 4 % (0-3) H Basophils (%) (Auto) 1 % (0-3) Neutrophils # (Auto) 2.5 x10^3uL (1.8-7.7) Lymphocytes # (Auto) 1.8 x10^3/uL (1.0-4.8) Monocytes # (Auto) 0.4 x10^3/uL (0.0-1.1) Eosinophils # (Auto) 0.2 x10^3/uL (0.0-0.7) Basophils # (Auto) 0.0 x10^3/uL (0.0-0.2) Sodium Level 136 mmol/L (136-145) Potassium Level 5.6 mmol/L (3.5-5.1) H Chloride Level 100 mmol/L (98-107) Carbon Dioxide Level 23 mmol/L (21-32) Anion Gap 13 (6-14) Blood Urea Nitrogen 20 mg/dL (7-20) Creatinine 0.6 mg/dL (0.6-1.0) Estimated GFR (Cockcroft-Gault) 99.7 BUN/Creatinine Ratio 33 (6-20) H Glucose Level 119 mg/dL (70-99) H Calcium Level 9.2 mg/dL (8.5-10.1) Total Bilirubin 0.6 mg/dL (0.2-1.0) Aspartate Amino Transferase (AST) 29 U/L (15-37) Alanine Aminotransferase (ALT) 27 U/L (14-59) Alkaline Phosphatase 146 U/L (46-116) H Troponin I Quantitative 0.414 ng/mL (0.000-0.055) Total Protein 6.7 g/dL (6.4-8.2) Albumin 3.5 g/dL (3.4-5.0) Albumin/Globulin Ratio 1.1 (1.0-1.7) Laboratory Tests 06/08/17 05:55 Laboratory Tests 06/08/17 05:55 EKG EKG 0547: EKG shows normal sinus rhythm rate of [address] elevation and no recent changes when compared to previous EKG done on January 10, 2017 there is a little more pronounced ST elevation in the inferior lateral leads at this time the EKGs inconclusive for a STEMI we'll repeat the EKG in 10 minutes. Repeat EKG at 602 shows sinus rhythm at [address] elevations in 23 aVF, V3 V4 V5 V6, T-wave inversions noted in aVL, QTC 418 ms, normal axis, which has changed from the previous EKG it 47, as interpreted by me. Repeat EKG at [address] elevations in 23 aVF, V4 V5 V6, without any concerning T-wave inversions, normal axis, QTC 426, normal axis, as interpreted by me. Similar to the same EKG at 602 Radiology/Procedures Radiology/Procedures One view chest x-ray does not show any focal consolidations, bony abnormality's , pneumothorax, as interpreted by me. Impressions: Elevated troponin Coronary artery disease Tobacco abuse Course & Med Decision Making Course & Med Decision Making Pertinent Labs and Imaging studies reviewed. (See chart for details) ED course: Patient was seen and examined emergency room cardiac workup was ordered 0600: Care the patient was transitioned to Dr. Frausto who will follow-up on the patient's lab work and final disposition. I (Dr. Frausto) assumed care of the patient 6:[address] May. I ordered the patient has sublingual nitroglycerin as her pain is still 6 out of 10 and she has not received nitroglycerin in the ER as of yet. She is received 3 doses and her pain went down to a 2 however EKG at 602 shows increasing elevation in the inferior leads and lateral. This is significantly different than her EKG she had in the system from January 10. I spoke with Dr. Yue briggs at 6:30 who agrees activated as a STEMI. The porcelain enamel laborer has been activated. She's received 325 aspirin. 06:45 Her troponin came back elevated at 0.4.He wanted to hold off on giving her heparin until you get to the Strategic Analyst. 0700 patient is being taken to the Strategic Analyst at this time. Her pain is at a 2 currently. Patient is being admitted to the hospitalist in stable condition at this time. Critical care time 45 minutes of critical care time was used on this patient excluding procedures. Dragon Disclaimer Dragon Disclaimer This electronic medical record was generated, in whole or in part, using a voice recognition dictation system. Departure Departure Impression: Primary Impression: Chest pain Disposition: ADMITTED INPATIENT Admitting Physician: Emelia Sin Condition: STABLE Referrals: GAYATRI HEWITT MD (PCP) Problem Qualifiers Primary Impression: Chest pain Chest pain type: unspecified Qualified Codes: R07.9 - Chest pain, unspecified KAUR MAY DO Jun 08, 2017 06:01 BRANDON FRAUSTO MD Jun 08, 2017 07:10
[2017-06-08] MEDS ORDERED: NITROGLYCERIN SUBLINGUAL 0.4 MG BOTTLE OF 25. SL ONE (06:06)
[2017-06-08 06:11] LABS: BASO % 1 % (0-3); EOS % 4 % (0-3); HEMATOCRIT 43.6 % (36.0-47.0); HEMOGLOBIN 14.9 g/dL (12.0-15.5); LYMPH # 1.8 x10^3/uL (1.0-4.8); LYMPH % 36 % (24-48); MEAN CORPUSCULAR HEMOGLOBIN 33 pg (25-35); MEAN CORPUSCULAR HGB CONC 34 g/dL (31-37); MEAN CORPUSCULAR VOLUME 95 fL (79-100); MONO % 9 % (0-9); NEUT % 51 % (31-73); PLATELET COUNT 232 x10^3/uL (140-400); RED BLOOD COUNT 4.59 x10^6/uL (3.50-5.40); RED CELL DISTRIBUTION WIDTH 13.6 % (11.5-14.5)
[2017-06-08] MEDS: NITROGLYCERIN SUBLINGUAL 0.4 MG BOTTLE OF 25. SL PRN ×5 (06:13→06:44)
[2017-06-08 06:18] LABS: CALCIUM 9.2 mg/dL (8.5-10.1); CREATININE 0.6 mg/dL (0.6-1.0); GFR 99.7
--- NOTE | 2017-06-08 06:21 | EKG ---
[facility] [address] [place] [address] Test Date: 2017-06-08 Test Time: 05:47:55 Pat Name: GARLAND RG Department: Room: Gender: F Adult Specialist: : 1950 Requested By: KAUR MAY Order Number: [id number] Reading MD: Measurements Intervals [place] Rate: 75 P: 42 TN: 182 QRS: 6 QRSD: 88 T: 45 QT: 360 QTc: 404 Interpretive Statements SINUS RHYTHM QRS(T) CONTOUR ABNORMALITY CONSIDER ANTEROSEPTAL MYOCARDIAL DAMAGE ST & T ABNORMALITY, CONSIDER RECENT INFERIOR MYOCARDIAL OR PERICARDIAL DAMAGE ABNORMAL ECG RI6.01 No previous ECG available for comparison
--- NOTE | 2017-06-08 06:22 | EKG ---
[facility] [address] [place] [address] Test Date: 2017-06-08 Test Time: 06:02:13 Pat Name: GARLAND RG Department: Room: Gender: F Field Health Officer: : 1950 Requested By: AKUR MAY Order Number: [id number] Reading MD: Measurements Intervals [place] Rate: 73 P: 44 NC: 192 QRS: 24 QRSD: 90 T: 64 QT: 376 QTc: 418 Interpretive Statements SINUS RHYTHM QRS(T) CONTOUR ABNORMALITY CONSIDER ANTEROSEPTAL MYOCARDIAL DAMAGE CONSIDER INFERIOR MYOCARDIAL DAMAGE POSSIBLY ABNORMAL ECG RI6.01 No previous ECG available for comparison
[2017-06-08 06:24] LABS: ALBUMIN 3.5 g/dL (3.4-5.0); ALBUMIN/GLOBULIN RATIO 1.1 (1.0-1.7); TOTAL BILIRUBIN 0.6 mg/dL (0.2-1.0); TOTAL PROTEIN 6.7 g/dL (6.4-8.2)
[2017-06-08] MEDS ORDERED: HEPARIN for IV BOLUS 10,000 UNIT/10 ML VIAL. ONE (06:26)
[2017-06-08 06:36] LABS: POTASSIUM 5.6 mmol/L (3.5-5.1)
[2017-06-08] MEDS ORDERED: IODIXANOL 320 MG/ML 100 ML VIAL. ONE (06:38)
[2017-06-08] MEDS ORDERED: LIDOCAINE 1% Multi-Dose 20 ML VIAL. ONE (06:38)
[2017-06-08] MEDS ORDERED: MIDAZOLAM HCL/PF 2 MG/2 ML VIAL. ONE (06:39)
[2017-06-08] MEDS ORDERED: fentaNYL PF VIAL 100 MCG/2 ML VIAL ONE (06:39)
[2017-06-08] MEDS ORDERED: HEPARIN for IV BOLUS 10,000 UNIT/10 ML VIAL. IV ONE (06:45)
--- NOTE | 2017-06-08 06:53 | EKG ---
[facility] [address] [place] [address] Test Date: 2017-06-08 Test Time: 06:23:01 Pat Name: GARLAND RG Department: Room: Gender: F Primer Press Operator: : 1950 Requested By: BRANDON FRAUSTO Order Number: [id number] Reading MD: Measurements Intervals [place] Rate: 70 P: 46 MT: 180 QRS: 9 QRSD: 86 T: 48 QT: 392 QTc: 426 Interpretive Statements SINUS RHYTHM QRS(T) CONTOUR ABNORMALITY CONSIDER ANTERIOR INFARCT CONSISTENT WITH INFERIOR INFARCT PROBABLY OLD ABNORMAL ECG RI6.01 No previous ECG available for comparison
[2017-06-08] MEDS ORDERED: IV NORMAL SALINE 1000ML BAG 1,000 ML IV ONE (07:00)
[2017-06-08] MEDS ORDERED: VERAPAMIL 5 MG/2 ML VIAL. ONE (07:06)
[2017-06-08] MEDS ORDERED: NITROGLYCERIN 200 MCG/2 ML SYRINGE FOR CATH/VASC LAB. ONE (07:06)
--- NOTE | 2017-06-08 07:24 | RAD ---
Indication chest pain. A single view of the chest was obtained and is compared to a study 01/11/2017. The heart and pulmonary vessels appear normal. The lungs are clear. There has not been a significant change in the appearance of the chest. IMPRESSION: No acute finding. No significant change
[2017-06-08] MEDS ORDERED: LIDOCAINE 2% 20 ML VIAL. IJ ONE (07:45)
[2017-06-08] MEDS ORDERED: IODIXANOL 320 MG/ML 100 ML VIAL. IART ONE (07:45)
[2017-06-08] MEDS ORDERED: fentaNYL PF VIAL 100 MCG/2 ML VIAL IV ONE (07:45)
[2017-06-08] MEDS ORDERED: VERAPAMIL 5 MG/2 ML VIAL. IART ONE (07:45)
[2017-06-08] MEDS ORDERED: HEPARIN for IV BOLUS 10,000 UNIT/10 ML VIAL. IART ONE (07:45)
[2017-06-08] MEDS ORDERED: NITROGLYCERIN 200 MCG/2 ML SYRINGE FOR CATH/VASC LAB. IART ONE (07:45)
[2017-06-08] MEDS ORDERED: MIDAZOLAM HCL/PF 2 MG/2 ML VIAL. IV ONE (07:45)
[2017-06-08] MEDS ORDERED: CONTRAST GIVEN MC PRN (07:45)
--- NOTE | 2017-06-08 08:55 | CONS ---
DATE OF CONSULTATION: 06/08/2017 REASON FOR CONSULTATION: ST elevation. HISTORY OF PRESENT ILLNESS: The patient is a pleasant 66-year-old woman with past medical history of coronary artery disease and uncontrolled hypertension, who presented to the hospital in the setting of sudden chest pain earlier this morning. Upon arrival to the ER, she was noted to be hypertensive and she had ST changes suggestive of possible inferior ST elevation and therefore, she was taken emergently to the Cardiac Catheterization Laboratory after appropriate informed consent. PAST MEDICAL HISTORY: 1. Coronary artery disease, status post PCI to the right coronary artery in the past. 2. Hypertension. 3. Dyslipidemia. PAST SURGICAL HISTORY: Appendectomy. FAMILY HISTORY: Hypertension. SOCIAL HISTORY: The patient smokes less than 1 pack per day. She denies any alcohol or illicit drug use. CARDIOVASCULAR MEDICATIONS: Include carvedilol 12.5 mg b.i.d., diltiazem 120 mg daily, lisinopril 40 mg daily and simvastatin 80 mg daily. ALLERGIES: No known drug allergies. REVIEW OF SYSTEMS: Negative for 10 out of 14 systems reviewed, unless otherwise mentioned above in HPI. PHYSICAL EXAMINATION: VITAL SIGNS: Afebrile, heart rate 82, blood pressure 127/75, respiratory rate 18, pulse ox 98% on room air. GENERAL: She was alert, in no acute distress. HEAD AND NECK: Unremarkable. CARDIAC: Regular rate and rhythm without any murmurs, rubs or gallops. LUNGS: Clear to auscultation bilaterally. ABDOMEN: Soft, nontender, nondistended. EXTREMITIES: No clubbing, cyanosis or edema. MUSCULOSKELETAL: No trauma. NEUROLOGIC: No focal deficits. DIAGNOSTIC STUDIES: 1. Hemoglobin and platelets within normal limits. 2. Potassium 5.6. 3. Troponin 0.414. 4. Cardiac catheterization revealed patent right coronary artery stents. She has mid myocardial bridging and appearance of Takotsubo cardiomyopathy with apical and anterolateral diaphragmatic hypokinesis. IMPRESSION: 1. 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 2. Coronary artery disease. 3. Dyslipidemia. RECOMMENDATIONS: Continue current medical therapy and plan for close monitoring in the ICU given her stress-induced cardiomyopathy and we will monitor her for any progressive cardiogenic shock. No obvious large vessel coronary disease. Continue supportive care with blood pressure control and risk factor modification. Thank you for this consultation. JESSE DOTSON MD DR: DONNA/riki JOB#: [id number] / [id number]
[2017-06-08] MEDS: LISINOPRIL 40 MG TABLET. PO SCH (11:00)
[2017-06-08] MEDS: PARoxetine 20 MG TABLET PO SCH (11:00)
--- NOTE | 2017-06-08 11:42 | HP ---
ADMIT DATE: 06/08/2017 CHIEF COMPLAINT: Chest pain. HISTORY OF PRESENT ILLNESS: The patient is a 66-year-old woman with past medical history of CAD among other issues, who presented to the Emergency Room with chest pain. She relates that she started experiencing midsternal chest pressure this morning, radiating to her left shoulder. She actually did have a history of heart attack and stent placement 10 years ago. She is currently following with Dr. Ferguson. She also apparently has a history of valvular heart disease. She has multiple risk factors including continued tobacco use, hypertension, hyperlipidemia. She did take nitroglycerin as well as aspirin prior to coming to the Emergency Room without any improvement. She denies any other symptoms, however, including shortness of breath, diaphoresis, nausea or vomiting. PAST MEDICAL HISTORY: CAD, status post MO and cardiac stents x 2, hypertension, hyperlipidemia, anxiety, history of appendectomy. FAMILY HISTORY: Positive for hypertension in mother. No heart disease known to her. SOCIAL HISTORY: Lives with her , continues to smoke about a pack a day. Rare alcohol use, no other drugs. ALLERGIES: No known drug allergies. MEDICATIONS: MAR reconciled with home meds. REVIEW OF SYSTEMS: Positive as per HPI. She relates the chest pain actually much improved currently. She denies any other symptoms in rest of organ system. LABORATORY DATA: CBC with a WBC of 5.0, hemoglobin 14.9, platelets of 232. Chemistries with a BUN and creatinine of 20 and 0.6, potassium at 5.6, glucose 119. LFTs essentially within normal. Initial troponin at 0.414. IMAGING: Chest x-ray shows no acute finding. ASSESSMENT AND PLAN: The patient is a 66-year-old woman with coronary artery disease, previous stents, who presented with chest pain and significant troponin elevation. Dr. Queen has taken her to cardiac catheterization earlier this morning with the finding of a tunneled coronary artery, with hypertension causing worse pressure on the vessel leading to ischemia. Coronary arteries by verbal report were fairly clean, however. The patient is currently fairly stable. We will continue her home medications for the time being. The blood pressure control will be essential in her. Further options need to be explored pertaining to her vessel abnormality including potential coronary artery bypass graft. Smoking cessation was discussed with her and will be essential to prevent any further events. The patient understands. DOMINGO KITCHEN MD DR: Kirsten JOB#: [id number] / [id number] SPENCER
--- NOTE | 2017-06-08 12:22 | CARD ---
APPROVED REPORT Procedure(s) performed: Moderate Sedation: 26 Minutes LHC, Coronary angiography, Left ventriculography HISTORY The patient is a 66 year-old female with a history of : coronary artery disease. INDICATION The indication(s) include : Transient ST elevations. . PROCEDURE NARRATIVE The patient was brought emergently to the cardiac catheterization lab. A timeout was performed confi rming the patient's name, date of , procedure, and site of procedure. All necessary personnel w ere wearing the appropriate protective equipment and radiation monitor devices. After explaining the risks and benefits of the procedure and alternatives, informed consent was obtained. (See nursing no estella for medications administered). The right wrist was sterilely prepped and draped in the usual fas hion. The right wrist was infiltrated with 1 mL of 2% lidocaine for subcutaneous anesthesia. A 6 Fr ench Terumo glide sheath was inserted into the right radial artery without difficulty. Right and lef t coronary angiography was performed using a 6Fr TIG 4.0 catheter. Left ventricular end diastolic pr essure was obtained with a pigtail catheter and pullback was performed after left ventriculography. All catheter exchanges and advancements were performed over a guidewire. At case completion the righ t radial sheath was removed and a Terumo radial band was applied with 13 ml of air. The patient tole rated the procedure well and there were no immediate complications. HEMODYNAMICS: LVEDP 18 mm Hg No gradient on LV to aortic pullback. LEFT VENTRICULOGRAM: EF 25% Anterobasal: Normal. Anterolateral: Severely hypokinetic. Apical: Akinetic. Diaphragmatic: Severely hypokinetic. Posterobasal: Normal CORONARY ANGIOGRAPHY: LM is a large caliber vessel with normal angiographic appearance. LAD is a large caliber vessel with normal angiographic appearance. There is a prominent mid myocardia l bridge noted. Ramus is a moderate caliber vessel with normal angiographic appearance. LCx is a moderate caliber non-dominant vessel with normal angiographic appearance. OM1 is a moderate caliber vessel with normal angiographic appearance. RCA is a large caliber dominant vessel with normal angiographic appearance. RPDA is a moderate caliber vessel with normal angiographic appearance. Conclusion 1. No significant coronary artery disease. 2. Stress induced CMP with a apical ballooning. (Takatsubo pattern) 3. Mid LAD myocardial bridging noted. Recommendations Aggressive medical therapy with excellent control of BP.
[2017-06-08] MEDS: NICOTINE 14MG PATCH. TD SCH (14:45)
[2017-06-08] MEDS ORDERED: CARVEDILOL 12.5 MG TABLET. PO SCH (17:00)
[2017-06-08] MEDS: ATORVASTATIN CALCIUM 40 MG TABLET. PO SCH (20:52)
[2017-06-08] MEDS: diphenhydrAMINE HCL 25 MG CAPSULE PO PRN (22:48)
[2017-06-09 03:35] VITALS: BP 150/76
[2017-06-09 05:41] LABS: BASO % 0 % (0-3); EOS % 1 % (0-3); HEMATOCRIT 42.7 % (36.0-47.0); HEMOGLOBIN 14.4 g/dL (12.0-15.5); LYMPH # 2.6 x10^3/uL (1.0-4.8); LYMPH % 34 % (24-48); MEAN CORPUSCULAR HEMOGLOBIN 32 pg (25-35); MEAN CORPUSCULAR HGB CONC 34 g/dL (31-37); MEAN CORPUSCULAR VOLUME 96 fL (79-100); MONO % 7 % (0-9); NEUT % 58 % (31-73); PLATELET COUNT 207 x10^3/uL (140-400); RED BLOOD COUNT 4.47 x10^6/uL (3.50-5.40); RED CELL DISTRIBUTION WIDTH 13.5 % (11.5-14.5); WHITE BLOOD COUNT 7.8 x10^3/uL (4.0-11.0)
[2017-06-09 05:51] LABS: CALCIUM 8.6 mg/dL (8.5-10.1); CREATININE 0.6 mg/dL (0.6-1.0); GFR 99.7
[2017-06-09 07:00] VITALS: BP 167/87
[2017-06-09] MEDS: LISINOPRIL 40 MG TABLET. PO SCH (08:47)
[2017-06-09] MEDS: CARVEDILOL 12.5 MG TABLET. PO SCH ×2 (08:47→16:47)
[2017-06-09] MEDS: ASPIRIN ENTERIC COATED 81 MG TABLET.DR. PO SCH (08:48)
[2017-06-09] MEDS: PARoxetine 20 MG TABLET PO SCH (08:48)
[2017-06-09] MEDS: NICOTINE 14MG PATCH. TD SCH (08:48)
[2017-06-09 11:00] VITALS: BP 132/76
--- NOTE | 2017-06-09 11:12 | PDOC ---
PROGRESS NOTES Chief Complaint Chief Complaint Chest pain ASSESSMENT AND PLAN: 1. CAD: cath on 06/08 with mid myocardial bridge, 'clean' vessels. cont 2ary prevention meds 2. CHF: acute systolic, poss Takotsubo with EF 25% on cath. plan echo in AM 3. HTN urgency: BP still not optimally controlled on BB, GAVIOTA-I. add Norvasc 4. History of Present Illness History of Present Illness feels fine, eager to go home Vitals Vitals Vital Signs Date Time Temp Pulse Resp B/P (MAP) Pulse Ox O2 Delivery O2 Flow Rate FiO2 06/09/17 08:47 80 167/87 06/09/17 07:00 98.4 20 94 Room Air 98.4 06/08/17 07:47 2.0 Physical Exam General: Alert, Oriented X3, Cooperative, No acute distress Heart: Regular rate Lungs: Clear Abdomen: Normal bowel sounds Extremities: No edema Skin: No rashes Labs LABS Laboratory Tests Test 06/08/17 12:57 06/08/17 19:00 06/09/17 05:00 Troponin I Quantitative 2.502 ng/mL (0.000-0.055) 2.243 ng/mL (0.000-0.055) White Blood Count 7.8 x10^3/uL (4.0-11.0) Red Blood Count 4.47 x10^6/uL (3.50-5.40) Hemoglobin 14.4 g/dL (12.0-15.5) Hematocrit 42.7 % (36.0-47.0) Mean Corpuscular Volume 96 fL (79-100) Mean Corpuscular Hemoglobin 32 pg (25-35) Mean Corpuscular Hemoglobin Concent 34 g/dL (31-37) Red Cell Distribution Width 13.5 % (11.5-14.5) Platelet Count 207 x10^3/uL (140-400) Neutrophils (%) (Auto) 58 % (31-73) Lymphocytes (%) (Auto) 34 % (24-48) Monocytes (%) (Auto) 7 % (0-9) Eosinophils (%) (Auto) 1 % (0-3) Basophils (%) (Auto) 0 % (0-3) Neutrophils # (Auto) 4.5 x10^3uL (1.8-7.7) Lymphocytes # (Auto) 2.6 x10^3/uL (1.0-4.8) Monocytes # (Auto) 0.5 x10^3/uL (0.0-1.1) Eosinophils # (Auto) 0.1 x10^3/uL (0.0-0.7) Basophils # (Auto) 0.0 x10^3/uL (0.0-0.2) Sodium Level 139 mmol/L (136-145) Potassium Level 4.0 mmol/L (3.5-5.1) Chloride Level 104 mmol/L (98-107) Carbon Dioxide Level 24 mmol/L (21-32) Anion Gap 11 (6-14) Blood Urea Nitrogen 17 mg/dL (7-20) Creatinine 0.6 mg/dL (0.6-1.0) Estimated GFR (Cockcroft-Gault) 99.7 Glucose Level 69 mg/dL (70-99) Calcium Level 8.6 mg/dL (8.5-10.1) Magnesium Level 2.0 mg/dL (1.8-2.4) DOMINGO KITCHEN MD Jun 09, 2017 11:12
[2017-06-09] MEDS ORDERED: hydrALAZINE 20 MG/ML VIAL. IVP PRN (11:15)
[2017-06-09] MEDS: amLODIPine BESYLATE 5 MG TABLET PO SCH (11:36)
--- NOTE | 2017-06-09 12:15 | PDOC ---
PROGRESS NOTES Subjective Subjective Patient feeling better. Denied any chest pain today. Objective Objective Vital Signs Date Time Temp Pulse Resp B/P (MAP) Pulse Ox O2 Delivery O2 Flow Rate FiO2 06/09/17 11:36 80 167/87 06/09/17 11:00 98.6 18 92 Room Air 98.6 06/08/17 07:47 2.0 Physical Exam Abdomen: Normal bowel sounds Heart: Regular rate Extremities: No edema General: Alert, Oriented X3, Cooperative, No acute distress MUSCULOSKELETAL: Osteoarthritic changes both hands Skin: No rashes Assessment Assessment 1. Acute systolic heart failure, Takotsubo's cardiomyopathy: Cardiac catheterization showed myocardial bridging involving LAD without any significant atherosclerotic stenosis. Cardiomyopathy clinically well compensated. Continue current medications including Coreg and lisinopril. 2. Hypertension: Agree with initiation of Norvasc for better blood pressure control Plan Plan of Care Problems Medical Problems: (1) Chest pain Status: Acute Comment Review of Relevant I have reviewed the following items anders (where applicable) has been applied. Labs Laboratory Tests Test 06/08/17 12:57 06/08/17 19:00 06/09/17 05:00 Troponin I Quantitative 2.502 ng/mL (0.000-0.055) 2.243 ng/mL (0.000-0.055) White Blood Count 7.8 x10^3/uL (4.0-11.0) Red Blood Count 4.47 x10^6/uL (3.50-5.40) Hemoglobin 14.4 g/dL (12.0-15.5) Hematocrit 42.7 % (36.0-47.0) Mean Corpuscular Volume 96 fL (79-100) Mean Corpuscular Hemoglobin 32 pg (25-35) Mean Corpuscular Hemoglobin Concent 34 g/dL (31-37) Red Cell Distribution Width 13.5 % (11.5-14.5) Platelet Count 207 x10^3/uL (140-400) Neutrophils (%) (Auto) 58 % (31-73) Lymphocytes (%) (Auto) 34 % (24-48) Monocytes (%) (Auto) 7 % (0-9) Eosinophils (%) (Auto) 1 % (0-3) Basophils (%) (Auto) 0 % (0-3) Neutrophils # (Auto) 4.5 x10^3uL (1.8-7.7) Lymphocytes # (Auto) 2.6 x10^3/uL (1.0-4.8) Monocytes # (Auto) 0.5 x10^3/uL (0.0-1.1) Eosinophils # (Auto) 0.1 x10^3/uL (0.0-0.7) Basophils # (Auto) 0.0 x10^3/uL (0.0-0.2) Sodium Level 139 mmol/L (136-145) Potassium Level 4.0 mmol/L (3.5-5.1) Chloride Level 104 mmol/L (98-107) Carbon Dioxide Level 24 mmol/L (21-32) Anion Gap 11 (6-14) Blood Urea Nitrogen 17 mg/dL (7-20) Creatinine 0.6 mg/dL (0.6-1.0) Estimated GFR (Cockcroft-Gault) 99.7 Glucose Level 69 mg/dL (70-99) Calcium Level 8.6 mg/dL (8.5-10.1) Magnesium Level 2.0 mg/dL (1.8-2.4) Medications Current Medications Amlodipine Besylate (Norvasc) 5 mg DAILY PO Last administered on 06/09/17 11: 36; Start 06/09/17 at 11:15 Aspirin (Ecotrin) 81 mg DAILYWBKFT PO Last administered on 06/09/17 08:48; Start 06/09/17 at 08:00 Atorvastatin Calcium (Lipitor) 40 mg QHS PO Last administered on 06/08/17 20: 52; Start 06/08/17 at 21:00 Carvedilol (Coreg) 12.5 mg BIDWMEALS PO Last administered on 06/08/17 16:38; Start 06/08/17 at 17:00; Stop 06/09/17 at 06:51; Status DC Carvedilol (Coreg) 25 mg BIDWMEALS PO Last administered on 06/09/17 08:47; Start 06/09/17 at 08:00 Diphenhydramine HCl (Benadryl) 25 mg PRN QHS PRN PO INSOMNIA Last administered on 06/08/17 22:48; Start 06/08/17 at 20:30 Hydralazine HCl (Apresoline Inj) 10 mg PRN Q4HRS PRN IVP ELEVATED BP, SEE COMMENTS; Start 06/09/17 at 11:15 Nicotine (Nicoderm Cq 14mg) 1 patch DAILY TD Last administered on 06/09/17t 08 :48; Start 06/08/17 at 14:30 Vitals/I & O Vital Sign - Last 24 Hours 06/08/17 06/08/17 06/08/17 06/08/17 13:00 14:00 15:00 16:05 Temp 98.1 98.1 Pulse 70 67 65 Resp 18 18 18 B/P (MAP) 140/75 (96) 149/80 (103) 152/79 (103) Pulse Ox 96 93 94 O2 Delivery Room Air Room Air Room Air Room Air 06/08/17 06/08/17 06/08/17 06/08/17 16:38 19:15 20:00 23:09 Temp 97.5 97.6 97.5 97.6 Pulse 65 73 76 Resp 18 20 B/P (MAP) 140/81 168/92 (117) 146/68 (94) Pulse Ox 97 94 O2 Delivery Room Air Room Air Room Air 06/09/17 06/09/17 06/09/17 06/09/17 03:35 07:00 08:05 08:47 Temp 97.9 98.4 97.9 98.4 Pulse 75 80 80 Resp 21 20 B/P (MAP) 150/76 (100) 167/87 (113) 167/87 Pulse Ox 95 94 O2 Delivery Room Air Room Air Room Air 06/09/17 06/09/17 06/09/17 08:47 11:00 11:36 Temp 98.6 98.6 Pulse 80 81 80 Resp 18 B/P (MAP) 167/87 132/76 (94) 167/87 Pulse Ox 92 O2 Delivery Room Air PATRIC DEL ROSARIO MD Jun 09, 2017 12:15
[2017-06-09 15:00] VITALS: BP 138/74
[2017-06-09 19:29] VITALS: BP 129/73
[2017-06-09] MEDS: ATORVASTATIN CALCIUM 40 MG TABLET. PO SCH (20:31)
[2017-06-09] MEDS: diphenhydrAMINE HCL 25 MG CAPSULE PO PRN (23:05)
[2017-06-09 23:07] VITALS: BP 156/88
[2017-06-10 03:36] VITALS: BP 121/69
[2017-06-10 07:00] VITALS: BP 129/77
[2017-06-10] MEDS: LISINOPRIL 40 MG TABLET. PO SCH (07:57)
[2017-06-10] MEDS: CARVEDILOL 12.5 MG TABLET. PO SCH ×2 (07:57→16:52)
[2017-06-10] MEDS: amLODIPine BESYLATE 5 MG TABLET PO SCH (07:58)
[2017-06-10] MEDS: PARoxetine 20 MG TABLET PO SCH (07:58)
[2017-06-10] MEDS: ASPIRIN ENTERIC COATED 81 MG TABLET.DR. PO SCH (07:58)
[2017-06-10] MEDS: NICOTINE 14MG PATCH. TD SCH (07:58)
[2017-06-10 10:36] VITALS: BP 116/68
--- NOTE | 2017-06-10 11:38 | PDOC ---
PROGRESS NOTES Chief Complaint Chief Complaint Chest pain ASSESSMENT AND PLAN: 1. CAD: cath on 06/08 with mid myocardial bridge, 'clean' vessels. cont 2ary prevention meds 2. CHF: acute systolic, poss Takotsubo with EF 25% on cath. rpt echo: 40% 3. HTN urgency: resolved on BB, GAV[place]-I, Norvasc 4. dispo: home today with cardiac clearance History of Present Illness History of Present Illness feels fine, eager to go home Vitals Vitals Vital Signs Date Time Temp Pulse Resp B/P (MAP) Pulse Ox O2 Delivery O2 Flow Rate FiO2 06/10/17 10:36 97.9 82 18 116/68 (84) 95 Room Air 97.9 Physical Exam General: Alert, Oriented X3, Cooperative, No acute distress Heart: Regular rate Lungs: Clear Abdomen: Normal bowel sounds Extremities: No edema Skin: No rashes DOMINGO KITCHEN MD Jun 10, 2017 11:38
[2017-06-10 15:00] VITALS: BP 146/83
--- NOTE | 2017-06-10 15:01 | CARD ---
APPROVED REPORT EXAM: Two-dimensional and M-mode echocardiogram with Doppler and color Doppler. Other Information Quality : Good INDICATION Congestive Heart Failure 2D DIMENSIONS RVDd3.0 (2.9-3.5cm)Left Atrium(2D)4.2 (1.6-4.0cm) IVSd1.3 (0.7-1.1cm)Aortic Root(2D)3.0 (2.0-3.7cm) LVDd4.4 (3.9-5.9cm)LVOT Diameter1.9 (1.8-2.4cm) PWd1.3 (0.7-1.1cm)LVDs2.3 (2.5-4.0cm) FS (%) 30.0 %SV69.3 ml LVEF(%)60.0 (>50%) Aortic Valve AoV Peak Martínez.105.8cm/Clyde Peak GR.4.5mmHg Mitral Valve MV E Nfpatdmf17.7cm/sMV DECEL [id number] MV A Lsjvkhoi93.7cm/sE/A Ratio0.5 TDI Lateral E' P. V9.20cm/sMedial E' P. V6.82cm/s E/Lateral E'5.0E/Medial E'6.7 Tricuspid Valve TR P. Vgoolkml981fu/sRAP ISDTRCLK0chNh TR Peak Gr.19ceTjMROH63xqQy Pulmonary Vein S1 Fojgndpq73.0cm/sS2 Dgnsfaih98.84cm/s D2 Qqiyoody40.8cm/s LEFT VENTRICLE The left ventricle is normal size. There is mild concentric left ventricular hypertrophy. Moderate hy pokinesis of mid to distal myocardial segments and the apical wall, pattern consistent with Takotsubo 's cardiomyopathy. The ejection fraction is estimated at 40%. Transmitral Doppler flow pattern is Gra de I-abnormal relaxation pattern. RIGHT VENTRICLE The right ventricle is normal size. The right ventricular systolic function is normal. ATRIA The left atrium is mildly dilated. The right atrium size is normal. The interatrial septum is intact with no evidence for an atrial septal defect or patent foramen ovale as noted on 2-D or Doppler imagi ng. AORTIC VALVE The aortic valve is calcified but opens well. Doppler and Color Flow revealed no significant aortic r egurgitation. There is no significant aortic valvular stenosis. MITRAL VALVE The mitral valve is normal in structure and function. There is no evidence of mitral valve prolapse. There is no mitral valve stenosis. Doppler and Color-flow revealed trace mitral regurgitation. TRICUSPID VALVE The tricuspid valve is normal in structure and function. Doppler and Color Flow revealed trace tricus pid regurgitation. The PA pressure was estimated at 21 mmHg. There is no tricuspid valve stenosis. PULMONIC VALVE The pulmonary valve is normal in structure and function. Doppler and Color Flow revealed trace to mil d pulmonic valvular regurgitation. There is no pulmonic valvular stenosis. GREAT VESSELS The aortic root is normal in size. The ascending aorta is not well seen. The IVC is normal in size an d collapses >50% with inspiration. PERICARDIAL EFFUSION There is no evidence of significant pericardial effusion. Critical Notification Critical Value: No <Conclusion> Moderate hypokinesis of mid to distal myocardial segments and the apical wall, pattern consistent wit h Takotsubo's cardiomyopathy. The ejection fraction is estimated at 40%. Transmitral Doppler flow pattern is Grade I-abnormal relaxation pattern. Trace mitral regurgitation. Trace tricuspid regurgitation. The PA pressure was estimated at 21 mmHg. There is no evidence of significant pericardial effusion.
[2017-06-10 16:52] VITALS: BP 146/83
[2017-06-10] MEDS ORDERED: CARV12.52 PO (16:56)
[2017-06-10] MEDS ORDERED: ASPI-612 PO (16:58)
[2017-06-10] MEDS ORDERED: AMLO5TAB2 PO (16:58)
--- NOTE | 2017-06-11 20:32 | DS ---
DATE OF DISCHARGE: 06/10/2017 CHIEF COMPLAINT: Chest pain. HOSPITAL COURSE: The patient is a 66-year-old woman who presented to the Emergency Room with chest pain. Because of EKG changes, she was immediately taken to label maker and was found with "clean" vessels, but with mid myocardial bridge causing distal ischemia. Because of this, she actually had sustained acute systolic CHF and was found with an EF of 25 at time of catheterization. The underlying etiology of issue was deemed to be hypertensive urgency which resolved with beta jasmin with addition of Norvasc. Repeat echo prior to discharge actually confirmed improving cardiac output with an EF of 40%. The patient was clinically much improved and was eager to go home. PHYSICAL EXAMINATION: VITAL SIGNS: Show a blood pressure of 116/68, heart rate of 82, respiratory rate at 18. GENERAL: She is alert and oriented, no acute distress. HEART: Regular rate and rhythm. LUNGS: Clear. ABDOMEN: Has positive bowel sounds, soft, nontender. EXTREMITIES: Show no edema. DISCHARGE DIAGNOSES: Myocardial infarction with Takotsubo congestive heart failure, hypertensive urgency. DISCHARGE DISPOSITION: To home. DISCHARGE CONDITION: Improved. DISCHARGE MEDICATIONS: Please refer to MAR. DISCHARGE INSTRUCTIONS: The patient will follow up with Cardiology Clinic in 2 weeks. DOMINGO KITCHEN MD DR: OSIEL/nts JOB#: [id number] / [id number] SPENCER
== END 2017-06-10 18:37 | disposition home or self-care (01) | DRG 280 ==
LOC: ER 05:41 → 1 WEST ICU 06:45 → 2 NORTH 18:30
PROVIDERS: ADMIT Internal Medicine; ATTEND Internal Medicine
PROC: 4A023N7 Measurement of Cardiac Sampling and Pressure, Left Heart, Percutaneous Approach (ICD-10-PCS; principal; 2017-06-08)
PROC: B2111ZZ Fluoroscopy of Multiple Coronary Arteries using Low Osmolar Contrast (ICD-10-PCS; 2017-06-08)
PROC: B2151ZZ Fluoroscopy of Left Heart using Low Osmolar Contrast (ICD-10-PCS; 2017-06-08)
DX: I21.9 Acute myocardial infarction, unspecified (principal); I50.21 Acute systolic (congestive) heart failure; I42.9 Cardiomyopathy, unspecified; I51.81 Takotsubo syndrome; I11.0 Hypertensive heart disease with heart failure; E78.5 Hyperlipidemia, unspecified; F17.210 Nicotine dependence, cigarettes, uncomplicated; I16.0 Hypertensive urgency; I25.10 Atherosclerotic heart disease of native coronary artery without angina pectoris; I25.2 Old myocardial infarction; Z82.49 Family history of ischemic heart disease and other diseases of the circulatory system; Z95.5 Presence of coronary angioplasty implant and graft; Z90.49 Acquired absence of other specified parts of digestive tract; Z79.899 Other long term (current) drug therapy
CPT/HCPCS: 36415; 71010; 80048; 80053; 83735; 84484; 85025; 87641; 93005; 93306; 93458; 99152; 99153; 99406; C1769; C1887; C1892; J1644; J2250; J3010; J3490; Q0163; 99291-25; J2001

== ENCOUNTER 2018-01-29 05:08 | Inpatient (IN) | payer BC, MEDICARE ==
[2018-01-29] MEDS: MORPHINE SULFATE 4 MG/ML DISP.SYRIN. IV (05:30)
[2018-01-29] MEDS: ASPIRIN CHEWABLE 81 MG TABLET. PO (05:30)
[2018-01-29] MEDS: IV NORMAL SALINE 1000ML BAG 1,000 ML IV (05:30)
[2018-01-29 05:37] LABS: ADD MAN DIFF? NO
[2018-01-29 05:39] LABS: BASO # 0.1 x10^3/uL (0.0-0.2); BASO % 1 % (0-3); EOS # 0.2 x10^3/uL (0.0-0.7); EOS % 2 % (0-3); HEMATOCRIT 44.4 % (36.0-47.0); HEMOGLOBIN 15.2 g/dL (12.0-15.5); LYMPH # 2.2 x10^3/uL (1.0-4.8); LYMPH % 18 % (24-48); MEAN CORPUSCULAR HEMOGLOBIN 33 pg (25-35); MEAN CORPUSCULAR HGB CONC 34 g/dL (31-37); MEAN CORPUSCULAR VOLUME 96 fL (79-100); MONO # 0.8 x10^3/uL (0.0-1.1); MONO % 6 % (0-9); NEUT # 9.3 x10^3uL (1.8-7.7); NEUT % 74 % (31-73); PLATELET COUNT 241 x10^3/uL (140-400); RED BLOOD COUNT 4.63 x10^6/uL (3.50-5.40); RED CELL DISTRIBUTION WIDTH 13.7 % (11.5-14.5); WHITE BLOOD COUNT 12.6 x10^3/uL (4.0-11.0)
[2018-01-29 05:43] LABS: TROPONIN BY ISTAT 0.05 ng/ml (<0.08)
[2018-01-29] MEDS ORDERED: HEPARIN for IV BOLUS 10,000 UNIT/10 ML VIAL. IV (05:45)
[2018-01-29 05:46] LABS: INR 1.2 (0.8-1.1); PROTHROMBIN TIME PATIENT 14.3 SEC (11.7-14.0)
[2018-01-29] MEDS: HEPARIN for IV BOLUS 10,000 UNIT/10 ML VIAL. IV (05:50)
[2018-01-29 05:52] LABS: ANION GAP 10 (6-14); BLOOD UREA NITROGEN 12 mg/dL (7-20); CALCIUM 9.3 mg/dL (8.5-10.1); CARBON DIOXIDE 23 mmol/L (21-32); CHLORIDE 97 mmol/L (98-107); CREATININE 0.9 mg/dL (0.6-1.0); GFR 62.3; GLUCOSE 129 mg/dL (70-99); POTASSIUM 4.4 mmol/L (3.5-5.1); SODIUM 130 mmol/L (136-145)
[2018-01-29] MEDS: HEPARIN 25,000UTS/500ML PREMIX 500 ML IV (05:56)
[2018-01-29 06:02] LABS: TROPONINI 0.039 ng/mL (0.000-0.055)
[2018-01-29 06:06] LABS: NT-PRO BNP 90 pg/mL (0-124)
[2018-01-29] MEDS: MORPHINE SULFATE 10 MG/ML VIAL. IV (06:27)
[2018-01-29] MEDS ORDERED: ONDANSETRON PF 4 MG/2 ML VIAL. IV (06:30)
[2018-01-29] MEDS ORDERED: MORPHINE SULFATE 4 MG/ML DISP.SYRIN. IV (06:30)
[2018-01-29] MEDS ORDERED: ANTI-COAG MONITOR BY PHARMACY. MC (08:45)
[2018-01-29] MEDS ORDERED: hydrALAZINE 20 MG/ML VIAL. IVP (10:00)
[2018-01-29 10:37] LABS: TROPONINI 2.508 ng/mL (0.000-0.055)
[2018-01-29] MEDS: PARoxetine 20 MG TABLET PO (10:46)
[2018-01-29] MEDS: LISINOPRIL 20 MG TABLET PO (10:46)
[2018-01-29] MEDS: ASPIRIN ENTERIC COATED 81 MG TABLET.DR. PO (10:47)
[2018-01-29] MEDS: CARVEDILOL 12.5 MG TABLET. PO ×2 (10:47→17:35)
[2018-01-29] MEDS: amLODIPine BESYLATE 10 MG TABLET PO (10:48)
[2018-01-29 12:29] LABS: TROPONINI 2.483 ng/mL (0.000-0.055)
[2018-01-29] MEDS: ENOXAPARIN 40 MG/0.4 ML SYRINGE. SQ (13:47)
[2018-01-29 21:18] LABS: BILIRUBIN,URINE NEGATIVE (NEG); CLARITY,URINE CLOUDY; COLOR,URINE YELLOW; GLUCOSE,URINE NEGATIVE (NEG); NITRITE,URINE POSITIVE (NEG); PH,URINE 6.5; PROTEIN,URINE NEGATIVE (NEG-TRACE); UROBILINOGEN,URINE 0.2 mg/dL (0.2 mg/dL)
[2018-01-29 21:29] LABS: BACTERIA,URINE MANY /HPF (0-FEW); WBC,URINE TNTC /HPF (0-4)
[2018-01-29 21:30] LABS: SQUAMOUS EPITHELIAL CELL,UR OCC /LPF
[2018-01-29] MEDS: ATORVASTATIN CALCIUM 40 MG TABLET. PO (21:37)
[2018-01-30 04:22] LABS: ANION GAP 13 (6-14); BLOOD UREA NITROGEN 12 mg/dL (7-20); CALCIUM 9.1 mg/dL (8.5-10.1); CARBON DIOXIDE 22 mmol/L (21-32); CHLORIDE 100 mmol/L (98-107); CREATININE 0.8 mg/dL (0.6-1.0); GFR 71.3; GLUCOSE 113 mg/dL (70-99); SODIUM 135 mmol/L (136-145)
[2018-01-30] MEDS: PARoxetine 20 MG TABLET PO (08:20)
[2018-01-30] MEDS: CARVEDILOL 12.5 MG TABLET. PO (08:21)
[2018-01-30] MEDS: amLODIPine BESYLATE 10 MG TABLET PO (08:21)
[2018-01-30] MEDS: LISINOPRIL 20 MG TABLET PO (08:22)
[2018-01-30] MEDS: ASPIRIN ENTERIC COATED 81 MG TABLET.DR. PO (08:22)
[2018-01-30] MEDS: ENOXAPARIN 40 MG/0.4 ML SYRINGE. SQ (12:00)
[2018-01-30] MEDS: CIPROFLOXACIN HCL 250 MG TABLET. PO (13:40)
[2018-01-30] MEDS ORDERED: LACTOBACILLUS RHAMNOSUS GG 1 CAPSULE. PO (21:00)
== END 2018-01-30 15:30 | disposition home or self-care (01) | DRG 281 ==
LOC: ER 05:08 → 2 NORTH 05:32
DX: I21.4 Non-ST elevation (NSTEMI) myocardial infarction (principal); I16.1 Hypertensive emergency; I42.9 Cardiomyopathy, unspecified; N39.0 Urinary tract infection, site not specified; Q24.5 Malformation of coronary vessels; E78.5 Hyperlipidemia, unspecified; F17.210 Nicotine dependence, cigarettes, uncomplicated; G47.33 Obstructive sleep apnea (adult) (pediatric); I10 Essential (primary) hypertension; I25.10 Atherosclerotic heart disease of native coronary artery without angina pectoris; J44.9 Chronic obstructive pulmonary disease, unspecified; Z82.49 Family history of ischemic heart disease and other diseases of the circulatory system; Z95.5 Presence of coronary angioplasty implant and graft; F32.9 Major depressive disorder, single episode, unspecified; F41.9 Anxiety disorder, unspecified; Z90.49 Acquired absence of other specified parts of digestive tract; Z71.6 Tobacco abuse counseling
CPT/HCPCS: 36415; 71045; 76770; 80048; 81001; 83880; 84484; 85025; 85610; 93005; 93306; 96365; 96374; 96375; 96376; 99285; 99285-25; 99406; J1644; J1650; J2270; J7030

== ENCOUNTER → 2018-09-10 | Outpatient (CLI) | payer BC ==
[2018-01-30 11:15] VITALS: BP 92/49
[~2018-09-10] MED LIST changes: +AMLO10TA4 PO; +AMLO5TAB7 PO; +ASPI-612 PO; +CARV12.511 PO; +CIPR500T94 PO; +LISI-130 PO; -LISI40TA PO; +SIMV80TA17 PO; -SIMV80TA3 PO
--- NOTE | 2018-09-10 16:23 | RAD ---
PROCEDURE: CHEST PA LATERAL CLINICAL INDICATION: PT STATES HAVING SHORTNESS OF BREATH. COMPARISON: None FINDINGS: Heart is normal in size. Lungs are clear consolidation. There is a round 7 mm radiopacity in the right lower lobe most likely a calcified granuloma. No pneumothorax or effusion. Visualized bony thorax within normal limits. IMPRESSION: No acute pulmonary process. Electronically signed by: Harrison Marcial DO (09/10/2018 4:19 PM) [id number]
== END | disposition home or self-care (01) ==
LOC: RAD 15:54
PROVIDERS: ATTEND Internal Medicine Cardiovascular Disease
DX: R06.02 Shortness of breath (principal)
CPT/HCPCS: 71046

== ENCOUNTER 2019-04-05 20:10 | Emergency (ER) | payer BC ==
[~2019-04-05] VITALS: Ht 165.1 cm; Wt 71.2 kg
[~2019-04-05 20:10] MED LIST changes: +AMLO5TAB10 PO; -AMLO5TAB7 PO
--- NOTE | 2019-04-05 20:30 | PHYS DOC ---
Past Medical History Past Medical History: Anxiety, CAD, Depression, Heart Disease, Hypertension Past Surgical History: Angioplasty, Appendectomy, Other Additional Past Surgical Histo: 2 Cardiac stents. Alcohol Use: Occasionally Additional Information: REPORTS 1-2 GLASSES OF WINE EACH DAY Drug Use: None Adult General Chief Complaint Chief Complaint: WEAKNESS/GENERALIZED HPI HPI Patient is a 68 year old [f__sex] who presents with [] Review of Systems Review of Systems Constitutional: Denies fever or chills Eyes: Denies redness or eye pain HENT: Denies nasal congestion or sore throat Respiratory: Denies cough or shortness of breath Cardiovascular: Denies chest pain or palpitations GI: Denies abdominal pain, nausea, or vomiting : Denies dysuria or hematuria Musculoskeletal: Denies back pain or joint pain Integument: Denies rash or skin lesions Neurologic: Denies headache, focal weakness or sensory changes Complete systems were reviewed and found to be within normal limits, except as documented in this note. Current Medications Current Medications Current Medications Medications (Trade) Dose Ordered Sig/Pipo Start Time Stop Time Status Last Admin Dose Admin Famotidine (Pepcid Vial) 20 mg 1X ONCE 04/05/19 21:00 04/05/19 21:01 DC 04/05/19 20:55 20 MG Info (CONTRAST GIVEN -- Rx MONITORING) 1 each PRN DAILY PRN 04/05/19 21:15 04/05/19 23:28 DC Iohexol (Omnipaque 300 Mg/ml) 75 ml 1X ONCE 04/05/19 21:30 04/05/19 21:31 DC 04/05/19 21:38 75 ML Ketorolac Tromethamine (Toradol 15mg Vial) 10 mg 1X ONCE 04/05/19 21:00 04/05/19 21:01 DC 04/05/19 20:55 10 MG Ondansetron HCl (Zofran) 4 mg 1X ONCE 04/05/19 21:00 04/05/19 21:01 DC 04/05/19 20:55 4 MG Sodium Chloride 1,000 ml @ 1,000 mls/hr 1X ONCE 04/05/19 21:00 04/05/19 21:59 DC 04/05/19 20:29 1,000 MLS/HR Allergies Allergies Allergies Coded Allergies Type Severity Reaction Last Updated Verified No Known Drug Allergies 06/14/14 No Physical Exam Physical Exam Constitutional: Well developed, well nourished, no acute distress, non-toxic appearance HENT: Normocephalic, atraumatic, oropharynx moist Eyes: PERRL, EOMI, conjunctiva normal, no discharge Neck: Normal range of motion, no tenderness, supple Cardiovascular: Heart rate normal, regular rhythm Lungs & Thorax: Bilateral breath sounds clear to auscultation, no wheezing Abdomen: Soft, no tenderness Skin: Warm, dry, no erythema, no rash Back: No tenderness, no CVA tenderness Extremities: No tenderness, ROM intact, no edema Neurologic: Alert and oriented X 3, normal motor function, normal sensory function, no focal deficits noted Psychologic: Affect normal, judgement normal, mood normal Current Patient Data Vital Signs Vital Signs Date Time Temp Pulse Resp B/P (MAP) Pulse Ox O2 Delivery O2 Flow Rate FiO2 04/05/19 22:44 78 20 95 04/05/19 20:10 98.0 145/87 (106) Room Air 98.0 Lab Values Laboratory Tests Test 04/05/19 20:20 04/05/19 20:30 White Blood Count 6.1 x10^3/uL (4.0-11.0) Red Blood Count 4.21 x10^6/uL (3.50-5.40) Hemoglobin 14.9 g/dL (12.0-15.5) Hematocrit 41.9 % (36.0-47.0) Mean Corpuscular Volume 100 fL (79-100) Mean Corpuscular Hemoglobin 35 pg (25-35) Mean Corpuscular Hemoglobin Concent 35 g/dL (31-37) Red Cell Distribution Width 14.0 % (11.5-14.5) Platelet Count 232 x10^3/uL (140-400) Neutrophils (%) (Auto) 59 % (31-73) Lymphocytes (%) (Auto) 31 % (24-48) Monocytes (%) (Auto) 8 % (0-9) Eosinophils (%) (Auto) 1 % (0-3) Basophils (%) (Auto) 1 % (0-3) Neutrophils # (Auto) 3.6 x10^3/uL (1.8-7.7) Lymphocytes # (Auto) 1.9 x10^3/uL (1.0-4.8) Monocytes # (Auto) 0.5 x10^3/uL (0.0-1.1) Eosinophils # (Auto) 0.1 x10^3/uL (0.0-0.7) Basophils # (Auto) 0.0 x10^3/uL (0.0-0.2) Prothrombin Time 12.2 SEC (11.7-14.0) Prothrombin Time INR 0.9 (0.8-1.1) Activated Partial Thromboplast Time 20 SEC (24-38) L Sodium Level 128 mmol/L (136-145) L Potassium Level 4.9 mmol/L (3.5-5.1) Chloride Level 92 mmol/L (98-107) L Carbon Dioxide Level 27 mmol/L (21-32) Anion Gap 9 (6-14) Blood Urea Nitrogen 7 mg/dL (7-20) Creatinine 0.7 mg/dL (0.6-1.0) Estimated GFR (Cockcroft-Gault) 83.0 BUN/Creatinine Ratio 10 (6-20) Glucose Level 118 mg/dL (70-99) H Lactic Acid Level 1.2 mmol/L (0.4-2.0) Calcium Level 9.1 mg/dL (8.5-10.1) Magnesium Level 1.8 mg/dL (1.8-2.4) Total Bilirubin 0.6 mg/dL (0.2-1.0) Aspartate Amino Transferase (AST) 47 U/L (15-37) H Alanine Aminotransferase (ALT) 37 U/L (14-59) Alkaline Phosphatase 154 U/L (46-116) H Creatine Kinase 72 U/L (26-192) Creatine Kinase MB (Mass) 0.7 ng/mL (0.0-3.6) Creatine Kinase MB Relative Index % (0-4) Troponin I Quantitative < 0.017 ng/mL (0.000-0.055) Total Protein 6.7 g/dL (6.4-8.2) Albumin 3.1 g/dL (3.4-5.0) L Albumin/Globulin Ratio 0.9 (1.0-1.7) L Lipase 155 U/L (73-393) Urine Collection Type U cath Urine Color Yellow Urine Clarity Clear Urine pH 7.0 Urine Specific [place] 1.010 Urine Protein Negative mg/dL (NEG-TRACE) Urine Glucose (UA) Negative mg/dL (NEG) Urine Ketones (Stick) Negative mg/dL (NEG) Urine Blood Negative (NEG) Urine Nitrite Negative (NEG) Urine Bilirubin Negative (NEG) Urine Urobilinogen Dipstick 1.0 mg/dL (0.2 mg/dL) Urine Leukocyte Esterase Moderate (NEG) Urine RBC 0 /HPF (0-2) Urine WBC 1-4 /HPF (0-4) Urine Squamous Epithelial Cells Mod /LPF Urine Bacteria Moderate /HPF (0-FEW) Urine Hyaline Casts Few /HPF Urine Mucus Slight /LPF Laboratory Tests 04/05/19 20:20 Laboratory Tests 04/05/19 20:20 EKG EKG @2012 NSR at 72bpm, NO ST elevation, Q wave in III, Radiology/Procedures Radiology/Procedures PROCEDURE: CT ABD PELV W/ IV CONTRST ONLY EXAM: CT Abdomen and Pelvis with IV contrast CLINICAL HISTORY: Abdominal pain, nausea vomiting. COMPARISON: none TECHNIQUE: Helical CT of the abdomen and pelvis was performed following the administration of intravenous contrast. Axial, coronal and sagittal reformatted images were generated. PQRS compliance statement - One or more of the following individualized dose reduction techniques were utilized for this study: 1. Automated exposure control 2. Adjustment of the mA and/or kV according to patient size 3. Use of iterative reconstruction technique FINDINGS: Lower chest: There is evidence changes are seen in the lung bases. Calcified granuloma right lower lobe. Coronary calcifications are seen. Abdomen and Pelvis: Subcentimeter hypodense hepatic lesion is too small to accurately characterize. Cholecystectomy clips are seen. No biliary ductal dilatation. Pancreas is unremarkable. Spleen is normal in appearance. Uniform uptake of contrast in the left kidney. No focal left renal lesion. No hydronephrosis. No hydroureter. Bladder is mildly distended. There may have been a right nephrectomy or severe calcified atrophy of the [place] right kidney. Moderate colonic stool content is seen. No small or large bowel dilatation. No evidence for bowel obstruction. Uterus and adnexa are grossly unremarkable by CT evaluation. No abdominal or pelvic ascites. No abdominal or pelvic lymphadenopathy. Dense atherosclerotic calcifications of aorta are seen. Tiny fat-containing periumbilical hernia. Bones: Degenerative changes of the spine are seen. No aggressive osseous lesion. IMPRESSION: 1. No evidence for bowel obstruction. 2. Changes of right nephrectomy or severe calcified atrophy of the [place] right kidney. This is unchanged to 01/08/2009. 3. There has been a cholecystectomy. No biliary ductal dilatation. Electronically signed by: Huan Mercado MD (04/05/2019 10:06 PM) [facility] Course & Med Decision Making Course & Med Decision Making Pertinent Labs and Imaging studies reviewed. (See chart for details) Patient stable for discharge with outpatient follow-up with PCP. Discussed findings and plan with patient and family, who acknowledge understanding and agreement. Dragon Disclaimer Dragon Disclaimer This electronic medical record was generated, in whole or in part, using a voice recognition dictation system. Departure Departure Impression: Primary Impression: Nausea & vomiting Disposition: 01 HOME, SELF-CARE Condition: STABLE Referrals: GAYATRI HEWITT MD (PCP) Patient Instructions: Nausea and Vomiting, [id number], Viral Gastroenteritis, [id number] Scripts Hyoscyamine Sulfate (LEVSIN-SL) 0.125 Mg Tab.subl 1-2 TAB SL PRN Q4HRS PRN for PAIN, #20 TAB Prov: DIMPLE GARAY DO 04/05/19 Famotidine (PEPCID) 20 Mg Tablet 20 MG PO BID, #14 TAB Prov: DIMPLE GARAY DO 04/05/19 Ondansetron (ONDANSETRON ODT) 4 Mg Tab.rapdis 1 TAB PO PRN Q6-8HRS PRN for NAUSEA, #16 TAB Prov: DIMPLE GARAY DO 04/05/19 Problem Qualifiers Primary Impression: Nausea & vomiting Vomiting type: unspecified Vomiting Intractability: intractable Qualified Codes: R11.2 - Nausea with vomiting, unspecified DIMPLE GARAY DO Apr 05, 2019 20:30
[2019-04-05 20:35] LABS: BASO % 1 % (0-3); EOS # 0.1 x10^3/uL (0.0-0.7); EOS % 1 % (0-3); HEMATOCRIT 41.9 % (36.0-47.0); HEMOGLOBIN 14.9 g/dL (12.0-15.5); LYMPH # 1.9 x10^3/uL (1.0-4.8); LYMPH % 31 % (24-48); MEAN CORPUSCULAR HEMOGLOBIN 35 pg (25-35); MEAN CORPUSCULAR HGB CONC 35 g/dL (31-37); MEAN CORPUSCULAR VOLUME 100 fL (79-100); MONO # 0.5 x10^3/uL (0.0-1.1); MONO % 8 % (0-9); NEUT # 3.6 x10^3/uL (1.8-7.7); NEUT % 59 % (31-73); PLATELET COUNT 232 x10^3/uL (140-400); RED BLOOD COUNT 4.21 x10^6/uL (3.50-5.40); WHITE BLOOD COUNT 6.1 x10^3/uL (4.0-11.0)
[2019-04-05 20:39] LABS: BILIRUBIN,URINE NEGATIVE (NEG); CLARITY,URINE CLEAR; COLOR,URINE YELLOW; NITRITE,URINE NEGATIVE (NEG); PROTEIN,URINE NEGATIVE (NEG-TRACE)
[2019-04-05 20:44] LABS: PROTHROMBIN TIME PATIENT 12.2 SEC (11.7-14.0)
[2019-04-05 20:45] LABS: CALCIUM 9.1 mg/dL (8.5-10.1); CREATININE 0.7 mg/dL (0.6-1.0); POTASSIUM 4.9 mmol/L (3.5-5.1)
[2019-04-05 20:47] LABS: SQUAMOUS EPITHELIAL CELL,UR MOD /LPF
[2019-04-05 20:48] LABS: BACTERIA,URINE MODERATE /HPF (0-FEW); HYALINE CASTS, URINE FEW /HPF; RBC,URINE 0 /HPF (0-2)
[2019-04-05 20:51] LABS: ALBUMIN 3.1 g/dL (3.4-5.0); ALBUMIN/GLOBULIN RATIO 0.9 (1.0-1.7); MAGNESIUM 1.8 mg/dL (1.8-2.4); TOTAL BILIRUBIN 0.6 mg/dL (0.2-1.0); TOTAL PROTEIN 6.7 g/dL (6.4-8.2)
[2019-04-05 20:59] LABS: CREATINE KINASE 72 U/L (26-192)
[2019-04-05] MEDS ORDERED: FAMOTIDINE 20 MG/2 ML VIAL IVP ONE (21:00)
[2019-04-05] MEDS ORDERED: IV NORMAL SALINE 1000ML BAG 1,000 ML IV ONE (21:00)
[2019-04-05] MEDS ORDERED: KETOROLAC 15 MG/ML VIAL. IV ONE (21:00)
[2019-04-05] MEDS ORDERED: ONDANSETRON PF 4 MG/2 ML VIAL. IV ONE (21:00)
[2019-04-05] MEDS ORDERED: CONTRAST GIVEN. MC PRN (21:15)
[2019-04-05] MEDS ORDERED: IOHEXOL 300 MG/ML 100ML VIAL. IV ONE (21:30)
--- NOTE | 2019-04-05 22:08 | RAD ---
EXAM: CT Abdomen and Pelvis with IV contrast CLINICAL HISTORY: Abdominal pain, nausea vomiting. COMPARISON: none TECHNIQUE: Helical CT of the abdomen and pelvis was performed following the administration of intravenous contrast. Axial, coronal and sagittal reformatted images were generated. PQRS compliance statement - One or more of the following individualized dose reduction techniques were utilized for this study: 1. Automated exposure control 2. Adjustment of the mA and/or kV according to patient size 3. Use of iterative reconstruction technique FINDINGS: Lower chest: There is evidence changes are seen in the lung bases. Calcified granuloma right lower lobe. Coronary calcifications are seen. Abdomen and Pelvis: Subcentimeter hypodense hepatic lesion is too small to accurately characterize. Cholecystectomy clips are seen. No biliary ductal dilatation. Pancreas is unremarkable. Spleen is normal in appearance. Uniform uptake of contrast in the left kidney. No focal left renal lesion. No hydronephrosis. No hydroureter. Bladder is mildly distended. There may have been a right nephrectomy or severe calcified atrophy of the [place] right kidney. Moderate colonic stool content is seen. No small or large bowel dilatation. No evidence for bowel obstruction. Uterus and adnexa are grossly unremarkable by CT evaluation. No abdominal or pelvic ascites. No abdominal or pelvic lymphadenopathy. Dense atherosclerotic calcifications of aorta are seen. Tiny fat-containing periumbilical hernia. Bones: Degenerative changes of the spine are seen. No aggressive osseous lesion. IMPRESSION: 1. No evidence for bowel obstruction. 2. Changes of right nephrectomy or severe calcified atrophy of the [place] right kidney. This is unchanged to 01/08/2009. 3. There has been a cholecystectomy. No biliary ductal dilatation. Electronically signed by: Huan Mercado MD (04/05/2019 10:06 PM) [facility]
[2019-04-05] MEDS ORDERED: FAMO-63 PO (22:18)
[2019-04-05] MEDS ORDERED: HYOS0.1265 SL (22:18)
[2019-04-05] MEDS ORDERED: ONDA4TAB12 PO (22:18)
[2019-04-05 22:44] VITALS: BP 168/93
--- NOTE | 2019-04-06 10:16 | EKG ---
[facility] [address] [place] [address] Test Date: 2019-04-05 Test Time: 20:13:19 Pat Name: GARLAND RG Department: Room: Gender: F [employer] Broker: : 1950 Requested By: DIMPLE GARAY Order Number: [id number] Reading MD: Georges Charles Measurements Intervals [place] Rate: 72 P: 20 MA: 202 QRS: 13 QRSD: 88 T: 34 QT: 402 QTc: 441 Interpretive Statements SINUS RHYTHM NONSPECIFIC ST-T WAVE CHANGES. Electronically Signed On 04-11-2019 9:47:00 CDT by Georges Charles
== END 2019-04-05 23:15 | disposition home or self-care (01) ==
LOC: ER 20:10
DX: R11.2 Nausea with vomiting, unspecified (principal); R53.1 Weakness; I11.9 Hypertensive heart disease without heart failure; I25.10 Atherosclerotic heart disease of native coronary artery without angina pectoris; F41.9 Anxiety disorder, unspecified; Z95.5 Presence of coronary angioplasty implant and graft
CPT/HCPCS: 36415; 74177; 80053; 81001; 82553; 83605; 83690; 83735; 84484; 85025; 85610; 85730; 87086; 93005; 96361; 96374; 96375; 99285; J1885; J2405; J3490; J7030; Q9967

== ENCOUNTER → 2021-03-08 | Outpatient (CLI) | payer BC ==
[~2021-03-08] MED LIST changes: +AMLO-186 PO; -AMLO5TAB10 PO; -ASPI-612 PO; +ASPI-886 PO; +FAMO-63 PO; +HYOS0.1265 SL; -LISI-338 PO; +LISI-517 PO; +ONDA4TAB12 PO
[2021-03-08 16:30] LABS: BASO % 1 % (0-3); EOS # 0.1 x10^3/uL (0.0-0.7); EOS % 2 % (0-3); HEMATOCRIT 46.7 % (36.0-47.0); LYMPH # 1.4 x10^3/uL (1.0-4.8); LYMPH % 26 % (24-48); MEAN CORPUSCULAR HEMOGLOBIN 34 pg (25-35); MEAN CORPUSCULAR HGB CONC 34 g/dL (31-37); MEAN CORPUSCULAR VOLUME 98 fL (79-100); MONO # 0.4 x10^3/uL (0.0-1.1); MONO % 7 % (0-9); NEUT # 3.5 x10^3/uL (1.8-7.7); NEUT % 65 % (31-73); PLATELET COUNT 205 x10^3/uL (140-400); RED BLOOD COUNT 4.75 x10^6/uL (3.50-5.40); RED CELL DISTRIBUTION WIDTH 14.3 % (11.5-14.5); WHITE BLOOD COUNT 5.3 x10^3/uL (4.0-11.0)
[2021-03-08 16:48] LABS: ALBUMIN 3.3 g/dL (3.4-5.0); CALCIUM 8.9 mg/dL (8.5-10.1); CREATININE 0.8 mg/dL (0.6-1.0); DIRECT BILIRUBIN 0.2 mg/dL (0.0-0.2); GFR 70.7; MAGNESIUM 1.7 mg/dL (1.8-2.4); POTASSIUM 3.3 mmol/L (3.5-5.1); TOTAL BILIRUBIN 0.7 mg/dL (0.2-1.0); TOTAL PROTEIN 6.8 g/dL (6.4-8.2)
[2021-03-08 16:50] LABS: CHOLESTEROL/HDL RATIO 3.4
== END ==
LOC: LAB 15:28
PROVIDERS: ATTEND Internal Medicine Cardiovascular Disease
DX: I25.10 Atherosclerotic heart disease of native coronary artery without angina pectoris (principal); I10 Essential (primary) hypertension; E78.5 Hyperlipidemia, unspecified
CPT/HCPCS: 36415; 80048; 80061; 80076; 83735; 85025